=== PATIENT | female | born 1930 | race Caucasian/White ===

== ENCOUNTER 2018-11-29 18:25 | Emergency (ER) | payer OTHER | END 2018-11-29 22:47 | disposition home or self-care (01) | LOC: ER 18:25 ==

== ENCOUNTER 2018-12-09 11:02 | Emergency (ER) | payer MEDICARE | END 2018-12-09 11:30 | disposition home or self-care (01) | LOC: ER 11:02 ==

== ENCOUNTER 2020-02-22 13:34 | Emergency (ER) | payer MEDICARE ==
[~2020-02-22] VITALS: Ht 160 cm; Wt 63.6 kg
[~2020-02-22 13:34] MED LIST: CEPH250C PO
--- NOTE | 2020-02-22 13:50 | NUR ---
LKWT 1315. Initial NIH 3.
[2020-02-22 14:05] LABS: BASOPHILS % (AUTO) 0 % (0-10); EOSINOPHILS # (AUTO) 0.2 10^3/uL (0.0-0.3); EOSINOPHILS % (AUTO) 2 % (0-10); HEMATOCRIT 42 % (35-52); HEMOGLOBIN 13.5 G/DL (11.5-16.0); LYMPHOCYTES # (AUTO) 1.7 X 10^3 (1.0-4.0); LYMPHOCYTES % (AUTO) 17 % (12-44); MEAN CORPUSCULAR HEMOGLOBIN 26 PG (25-34); MEAN CORPUSCULAR HGB CONC 32 G/DL (32-36); MEAN CORPUSCULAR VOLUME 82 FL (80-99); MEAN PLATELET VOLUME 9.8 FL (7.4-10.4); MONOCYTES # (AUTO) 1.1 X 10^3 (0.0-1.0); MONOCYTES % (AUTO) 11 % (0-12); NEUTROPHILS # (AUTO) 6.8 X 10^3 (1.8-7.8); NEUTROPHILS % (AUTO) 70 % (42-75); PLATELET COUNT 273 10^3/uL (130-400); WHITE BLOOD COUNT 9.7 10^3/uL (4.3-11.0)
--- NOTE | 2020-02-22 14:07 | ED Neurological Problem ---
General Chief Complaint: Neurological Problems Stated Complaint: SLURRED SPEECH Source: patient Exam Limitations: no limitations History of Present Illness Date Seen by Provider: Feb 22, 2020 Time Seen by Provider: 13:48 Initial Comments Patient presents ER by private conveyance from home with chief complaint that about half hour prior to arrival she started having some slurred speech and right arm weakness. 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 Last night she got up to get a drink of water which she says is unusual for her. At that time she had some slurred speech but it went away in a few minutes. She did not seek care at that time. She also noted since this morning she's been having some pain in her left hip. 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 Not bad enough for her to take anything or wanting anything for it. She does not take blood thinners, antiplatelets routinely. LKWT 1315. Allergies and Home Medications Allergies Coded Allergies: Sulfa (Sulfonamide Antibiotics) (Unverified Allergy, Unknown, 11/29/18) Home Medications Cephalexin 250 Mg Capsule, 250 MG PO QID Prescribed by: RUDI BARRERA on 11/29/18 2140 Patient Home Medication List Home Medication List Reviewed: Yes Review of Systems Review of Systems Constitutional: No chills, No diaphoresis Eyes: Denies Blindness, Denies Drainage Ears, Nose, Mouth, Throat: denies ear pain, denies ear discharge Respiratory: No cough, No short of breath Cardiovascular: No chest pain, No edema Gastrointestinal: No abdominal pain, No constipation, No diarrhea, No nausea Genitourinary: No discharge, No dysuria; frequency Musculoskeletal: see HPI; No back pain; joint pain All Other Systems Reviewed Negative Unless Noted: Yes Past Kgojpah-Gfdhpv-Iklmin Hx Patient Social History Alcohol Use: Denies Use Recreational Drug Use: No Smoking Status: Never a Smoker 2nd Hand Smoke Exposure: No Recent Foreign Travel: No Contact w/Someone Who Travel: No Recent Hopitalizations: No Seasonal Allergies Seasonal Allergies: No Past Medical History Surgeries: Yes Appendectomy, Hysterectomy Respiratory: No Hypertension Neurological: Yes (former brain bleed) Genitourinary: No Gastrointestinal: No Musculoskeletal: No Endocrine: No HEENT: No Cancer: No Psychosocial: No Integumentary: No Blood Disorders: No Adverse Reaction/Blood Tranf: No Physical Exam Vital Signs Vital Signs - First Documented Capillary Refill : Height, Weight, BMI Height: 5'4.50" Weight: 148lbs. oz. 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, no motor/sensory deficits, alert, normal mood/affect, oriented x 3 Crainal Nerves: normal hearing, normal speech, PERRL Motor/Sensory: no sensory deficit, pronator drift (R) Skin: normal color, warm/dry Stroke Onset of Symptoms Date of Onset of Symptoms: Feb 22, 2020 Time of Symptom Onset: 13:30 Onset of Symptoms: Yes Symptoms onset unknown: No NIH Stroke Scale Assessment Select: Initial Level of Consciousness: 0=Alert (0), Level of Consciousness- Questions: 0=Answers both month/age (0), LOC Commands: 0=Performs both tasks (0), Gaze: Normal (0), Visual Beck: 0=No visual loss (0), Facial Movement (Facial Paresis): 0=Normal symmetrical mnt (0), Motor Function-Arms Right: 2=Some effort/gravity (2), Motor Function-Arms Left: 0=No drift (0), Motor Function-Legs Right: 0=No drift (0), Motor Function-Legs Left: 0=No drift (0), Limb Ataxia: 0=Absent (0), Sensory: 0=Normal:no loss (0), Best Language: 0=No aphasia (0), Dysarthria: 1=Mild to moderate loss (1), Extinction & Inattention: 0=No abnormality (0), Total: 3 Stroke Thrombolytic Exclusion Age 18 or Over: Yes (3) History of CVA: Yes Uncontrolled Coagulation Defec: No Intracranial Hemorrhage: No Severe Hypertension: No GI or Bleed: No Intracranial Neoplasm/Aneurysm: No Oral Anticoagulants: No Surgery or Trauma: No Puncture of Non-Compressible V: No Recent CPR: No Diabetic Hemorrhagic Retinopat: No Organ Biopsy: No Recent Obstetric Delivery: No Glucose: No (95) Significant Hepatic Dysfunctio: No NIH Stoke Scale >22: No Bacterial Endocarditis: No Pericarditis: No Improving Symptoms: Yes Platelets: No TPA Contraindication: Yes (improving symptoms and NIH score is probably too low to benefit from TPA at) IV - TPa Received IV - TPa Procedure Performed?: No Procedures/Interventions Suture Size: 4-0 Progress/Results/Core Measures Results/Orders Lab Results Laboratory Tests Test 02/22/20 13:50 Range/Units White Blood Count 9.7 4.3-11.0 10^3/uL Red Blood Count 5.11 4.35-5.85 10^6/uL Hemoglobin 13.5 11.5-16.0 G/DL Hematocrit 42 35-52 % Mean Corpuscular Volume 82 80-99 FL Mean Corpuscular Hemoglobin 26 25-34 PG Mean Corpuscular Hemoglobin Concent 32 32-36 G/DL Red Cell Distribution Width 14.6 H 10.0-14.5 % Platelet Count 273 130-400 10^3/uL Mean Platelet Volume 9.8 7.4-10.4 FL Neutrophils (%) (Auto) 70 42-75 % Lymphocytes (%) (Auto) 17 12-44 % Monocytes (%) (Auto) 11 0-12 % Eosinophils (%) (Auto) 2 0-10 % Basophils (%) (Auto) 0 0-10 % Neutrophils # (Auto) 6.8 1.8-7.8 X 10^3 Lymphocytes # (Auto) 1.7 1.0-4.0 X 10^3 Monocytes # (Auto) 1.1 H 0.0-1.0 X 10^3 Eosinophils # (Auto) 0.2 0.0-0.3 10^3/uL Basophils # (Auto) 0.0 0.0-0.1 10^3/uL Prothrombin Time 13.6 12.2-14.7 SEC INR Comment 1.0 0.8-1.4 Activated Partial Thromboplast Time 27 24-35 SEC D-Dimer 5.89 H 0.00-0.49 UG/ML Sodium Level 140 135-145 MMOL/L Potassium Level 4.2 3.6-5.0 MMOL/L Chloride Level 106 98-107 MMOL/L Carbon Dioxide Level 25 21-32 MMOL/L Anion Gap 9 5-14 MMOL/L Blood Urea Nitrogen 20 H 7-18 MG/DL Creatinine 0.85 0.60-1.30 MG/DL Estimat Glomerular Filtration Rate > 60 BUN/Creatinine Ratio 24 Glucose Level 98 70-105 MG/DL Glucometer 95 70-110 MG/DL Calcium Level 9.3 8.5-10.1 MG/DL Corrected Calcium 9.3 8.5-10.1 MG/DL Total Bilirubin 0.5 0.1-1.0 MG/DL Aspartate Amino Transf (AST/SGOT) 17 5-34 U/L Alanine Aminotransferase (ALT/SGPT) 14 0-55 U/L Alkaline Phosphatase 136 40-136 U/L Troponin I < 0.028 <0.028 NG/ML Total Protein 7.4 6.4-8.2 GM/DL Albumin 4.0 3.2-4.5 GM/DL My Orders Orders - EDGAR OSEGUERA Cbc With Automated Diff (02/22/20 13:59) Protime With Inr (02/22/20 13:59) Partial Thromboplastin Time (02/22/20 13:59) Comprehensive Metabolic Panel (02/22/20 13:59) Fibrin Degradation Products (02/22/20 13:59) Troponin I (02/22/20 13:59) Ua Culture If Indicated (02/22/20 13:59) Chest 1 View, Ap/Pa Only (02/22/20 13:59) Ekg Tracing (02/22/20 13:59) Nothing By Mouth (02/22/20 Lunch) Accucheck Stat ONCE (02/22/20 13:59) Ed Iv/Invasive Line Start (02/22/20 13:59) Ed Iv/Invasive Line Start (02/22/20 13:59) Vital Signs Stroke Patient Q15M (02/22/20 13:59) Ct Head Wo-R/O Stroke (02/22/20 13:59) O2 (02/22/20 13:59) Intake & Output 06,14,22 (02/22/20 13:59) Monitor-Rhythm Ecg Trace Only (02/22/20 13:59) Dysphagia Screening Tool (02/22/20 13:59) Lipid Panel (02/23/20 06:00) Vital Signs/I&O 02/22/20 02/22/20 13:46 13:46 Temp 36.6 36.6 Pulse 65 65 Resp 20 20 B/P (MAP) 141/63 (89) 141/63 (89) Pulse Ox 95 95 O2 Delivery Room Air Room Air FSBG Bedside Testing Finger Stick Blood Glucose: 96 Blood Glucose Action Taken: PROVIDER NOTIFIED Progress Progress Note #1: Time: 14:44 Progress Note On return from CT patient's speech is more garbled and she's having more slurring of her words. She is now receiving a total of 4 points, 2 for her right arm and 2 for her dysphagia. Progress Note #2: Time: 15:38 Progress Note Spoke to Tenisha, daughter per patient's request. Updated her of the situation. Initial ECG Impression Date: Feb 22, 2020 Initial ECG Impression Time: 13:53 Initial ECG Rate: 58 Initial ECG Rhythm: Normal Sinus Initial ECG Intervals: Normal Initial ECG Impression: Normal, Nonspecific Changes Initial ECG Comparisson: No Previous ECG Available Comment Normal sinus rhythm Diagnostic Imaging Diagonstic Imaging: Xray Plain Films/CT/US/NM/MRI: chest (1v) Comments NAME: TERRANCE TRUJILLO [facility] REC#: [id number] PT STATUS: REG ER : 1930 PHYSICIAN: EDGAR OSEGUERA MD ADMIT DATE: 02/22/20/ER Draft Date of Exam:02/22/20 CHEST 1 VIEW, AP/PA ONLY EXAMINATION: Portable erect AP chest at 02:14 p.m. INDICATION: CVA. FINDINGS: The heart size is borderline enlarged but stable when compared to the prior exam of 11/29/2018. The chronic pulmonary changes, primarily involving the lung apices, seen on the prior study are again evident and no different. There is no sign of failure, pneumonia or pleural effusion. The mediastinum is not widened. The osseous structures are intact. IMPRESSION: There is no evidence for active disease. Dictated on workstation # [id number] Dict: 02/22/20 1421 Trans: 02/22/20 1423 [facility] [id number] Interpreted by: VAHE MACIEL MD Electronically signed by: Reviewed: Reviewed by Me Diagonstic Imaging: CT Plain Films/CT/US/NM/MRI: head Comments NAME: TERRANCE TRUJILLO [facility] REC#: [id number] PT STATUS: REG ER : 1930 PHYSICIAN: EDGAR OSEGUERA MD ADMIT DATE: 02/22/20/ER Draft Date of Exam:02/22/20 CT HEAD WO-R/O STROKE PROCEDURE: CT head wo r/o stroke. TECHNIQUE: Multiple contiguous axial images were obtained through the brain without the use of intravenous contrast. Auto Exposure Controls were utilized during the CT exam to meet ALARA standards for radiation dose reduction. INDICATION: Stroke activation with slurred speech. Correlation is made with prior head CT from 11/29/2018. There is a small amount of acute subarachnoid hemorrhage involving the left frontoparietal convexity. No subdural, epidural or intraparenchymal hemorrhage is seen. The ventricular size and sulcal pattern are stable when compared with prior exam. There is moderate periventricular hypodensity noted consistent with senescent change. No midline shift is identified. Cisterns are patent. Visualized paranasal sinuses are clear. IMPRESSION: 1. Small amount of acute subarachnoid hemorrhage left frontoparietal convexity. No other areas of hemorrhage are detected. 2. Senescent changes. Results were discussed with Dr. Oseguera of the emergency Department prior to this dictation. Dictated on workstation # [id number] Dict: 02/22/20 1418 Trans: 02/22/20 1426 [facility] [id number] Interpreted by: GUILLE VALLES MD Electronically signed by: Reviewed: Reviewed by Me, Discussed w/Radiologist Departure Impression Primary Impression: Subarachnoid hemorrhage Disposition: XF [facility] HOSP Condition: Stable Transfer Transfer Reason: Exceeds level of care (no neurosurgery available here) Time Spoke to Accepting Phy: 15:20 Transfer Progress Notes Spoke to [facility] at 1430: Gave report to triage nurse. She will recheck to neurosurgery and call us back. 1520: Liss, triage nurse at [facility] has spoken to neurosurgery, neuro ICU as well as neurology. Neurology except the patient. They will call us back with a room number. They do not have any intentions offer at this time however they do want to see her inpatient at [facility], work her up and offer any appropriate interventions as indicated. They wish us to warn the patient and family of the risks of distant transport after a subarachnoid hemorrhage for seizure, worsening neurologic outcome etc. Dr Cristina, Neurology accepting. Transfer Facility: [facility] Method of Transfer: EMS ([facility]) Departure-Patient Inst. Referrals: NO,LOCAL PHYSICIAN (PCP/Family) Primary Care Physician EDGAR OSEGUERA Feb 22, 2020 14:07
[2020-02-22 14:12] LABS: CHLORIDE 106 MMOL/L (98-107); POTASSIUM 4.2 MMOL/L (3.6-5.0); SODIUM 140 MMOL/L (135-145)
[2020-02-22 14:13] LABS: CALCIUM 9.3 MG/DL (8.5-10.1)
[2020-02-22 14:14] LABS: GLUCOSE 98 MG/DL (70-105); TOTAL PROTEIN 7.4 GM/DL (6.4-8.2)
[2020-02-22 14:15] LABS: CARBON DIOXIDE 25 MMOL/L (21-32)
[2020-02-22 14:16] LABS: BILIRUBIN,TOTAL 0.5 MG/DL (0.1-1.0)
[2020-02-22 14:18] LABS: ALKALINE PHOSPHATASE 136 U/L (40-136); CREATININE SERUM 0.85 MG/DL (0.60-1.30); GFR ESTIMATED > 60
[2020-02-22 14:19] LABS: BUN/CREATININE RATIO 24
--- NOTE | 2020-02-22 14:20 | NUR ---
Upon returning from CT, becca higgins noted. NIH score 4. Provider notified.
[2020-02-22 14:21] LABS: ALANINE AMINOTRANSFERASE 14 U/L (0-55)
[2020-02-22 14:24] LABS: FIBRIN DEGRADATION PRODUCTS 5.89 UG/ML (0.00-0.49); PROTHROMBIN TIME PATIENT 13.6 SEC (12.2-14.7)
--- NOTE | 2020-02-22 14:24 | Diagnostic Imaging Report ---
EXAMINATION: Portable erect AP chest at 02:14 p.m. INDICATION: CVA. FINDINGS: The heart size is borderline enlarged but stable when compared to the prior exam of 11/29/2018. The chronic pulmonary changes, primarily involving the lung apices, seen on the prior study are again evident and no different. There is no sign of failure, pneumonia or pleural effusion. The mediastinum is not widened. The osseous structures are intact. IMPRESSION: There is no evidence for active disease. Dictated by: Dictated on workstation # [id number]
--- NOTE | 2020-02-22 14:26 | Diagnostic Imaging Report ---
PROCEDURE: CT head wo r/o stroke. TECHNIQUE: Multiple contiguous axial images were obtained through the brain without the use of intravenous contrast. Auto Exposure Controls were utilized during the CT exam to meet ALARA standards for radiation dose reduction. INDICATION: Stroke activation with slurred speech. Correlation is made with prior head CT from 11/29/2018. There is a small amount of acute subarachnoid hemorrhage involving the left frontoparietal convexity. No subdural, epidural or intraparenchymal hemorrhage is seen. The ventricular size and sulcal pattern are stable when compared with prior exam. There is moderate periventricular hypodensity noted consistent with senescent change. No midline shift is identified. Cisterns are patent. Visualized paranasal sinuses are clear. IMPRESSION: 1. Small amount of acute subarachnoid hemorrhage left frontoparietal convexity. No other areas of hemorrhage are detected. 2. Senescent changes. Results were discussed with Dr. Oseguera of the emergency Department prior to this dictation. Dictated by: Dictated on workstation # [id number]
--- NOTE | 2020-02-22 15:10 | NUR ---
Contacted daughters Michelle regarding pt findings et update. ([phone])
--- NOTE | 2020-02-22 15:30 | NUR ---
Pt signed consent for transfer to [facility].
--- NOTE | 2020-02-22 15:35 | NUR ---
PCCT assisted pt to bedside commode to obtain clean catch urine sample. Pt tolerated well.
[2020-02-22 15:46] LABS: BILIRUBIN,URINE NEGATIVE (NEGATIVE); CLARITY,URINE CLEAR; COLOR,URINE YELLOW; GLUCOSE, URINE (UA) NEGATIVE (NEGATIVE); KETONES,URINE NEGATIVE (NEGATIVE); LEUKOCYTE ESTERASE ,URINE 1+ (NEGATIVE); NITRITE,URINE NEGATIVE (NEGATIVE); PROTEIN,URINE NEGATIVE (NEGATIVE)
[2020-02-22 15:53] LABS: BACTERIA,URINE TRACE /HPF; YEAST,URINE FEW /HPF
[2020-02-22 17:40] VITALS: BP 159/60
== END 2020-02-22 17:40 | disposition short-term general hospital (02) ==
LOC: EDUNIT# 13:34 → ER 13:39
DX: I60.8 Other nontraumatic subarachnoid hemorrhage (principal); Z88.2 Allergy status to sulfonamides; Z96.642 Presence of left artificial hip joint
CPT/HCPCS: 36415; 70450; 71045; 80053; 81000; 82962; 84484; 85025; 85379; 85610; 85730; 87088; 93005; 93041

== ENCOUNTER → 2020-05-16 | Outpatient (CLI) | payer MEDICARE ==
--- NOTE | 2020-05-16 16:10 | Diagnostic Imaging Report ---
INDICATION: Left hip pain. Previous hip replacement. COMPARISON: None FINDINGS: Two radiographic views of the left hip were obtained and show expected postsurgical changes of previous partial left hip replacement. Femoral component appears well-aligned in respect to the [place] acetabulum. Femoral component also appears well-seated within the proximal femur. There is no evidence periprosthetic fracture. No unexpected radiopaque foreign bodies are seen. IMPRESSION: 1. Expected postsurgical changes of previous left hip hemiarthroplasty. Dictated by: Dictated on workstation # [id number]
== END ==
LOC: RAD 15:30
PROVIDERS: ATTEND Family Medicine
DX: M25.552 Pain in left hip (principal); Z96.642 Presence of left artificial hip joint
CPT/HCPCS: 73502

== ENCOUNTER 2021-01-28 19:24 | Inpatient (IN) | payer MEDICARE ==
[~2021-01-28] VITALS: Ht 154.9 cm; Wt 59.7 kg
[2021-01-28 20:43] LABS: BASOPHILS # (AUTO) 0.1 10^3/uL (0.0-0.1); BASOPHILS % (AUTO) 0 % (0-10); EOSINOPHILS % (AUTO) 0 % (0-10); HEMATOCRIT 43 % (35-52); HEMOGLOBIN 13.5 g/dL (11.5-16.0); LYMPHOCYTES # (AUTO) 1.5 10^3/uL (1.0-4.0); LYMPHOCYTES % (AUTO) 12 % (12-44); MEAN CORPUSCULAR HEMOGLOBIN 25 pg (25-34); MEAN CORPUSCULAR HGB CONC 31 g/dL (32-36); MEAN CORPUSCULAR VOLUME 80 fL (80-99); MEAN PLATELET VOLUME 9.3 fL (9.0-12.2); MONOCYTES # (AUTO) 1.1 10^3/uL (0.0-1.0); MONOCYTES % (AUTO) 9 % (0-12); NEUTROPHILS # (AUTO) 9.2 10^3/uL (1.8-7.8); NEUTROPHILS % (AUTO) 73 % (42-75); PLATELET COUNT 379 10^3/uL (130-400); WHITE BLOOD COUNT 12.5 10^3/uL (4.3-11.0)
[2021-01-28 20:47] LABS: PROTHROMBIN TIME PATIENT 13.7 SEC (12.2-14.7)
[2021-01-28 20:50] LABS: SMEAR SCAN COMMENT YES
--- NOTE | 2021-01-28 20:55 | Diagnostic Imaging Report ---
HISTORY: Altered mental status. COMPARISON: 02/22/2020. TECHNIQUE: Frontal view of the chest. FINDINGS: Lung volumes are mildly large. No focal consolidation is seen. There is mild scarring in the lung apices. The cardiac silhouette is stable in size. There is no pleural effusion or pneumothorax. There is aortic atherosclerosis. There is diffuse osteopenia. IMPRESSION: No acute pulmonary abnormality. Dictated by: Dictated on workstation # [id number]
[2021-01-28 21:05] LABS: ALANINE AMINOTRANSFERASE 24 U/L (0-55); ALBUMIN 3.6 GM/DL (3.2-4.5); ALKALINE PHOSPHATASE 165 U/L (40-136); AMMONIA 33 UMOL/L (11-32); BILIRUBIN,TOTAL 0.7 MG/DL (0.1-1.0); BUN/CREATININE RATIO 23; CALCIUM 9.6 MG/DL (8.5-10.1); CARBON DIOXIDE 22 MMOL/L (21-32); CHLORIDE 101 MMOL/L (98-107); CREATINE KINASE 14 U/L (29-168); CREATININE SERUM 0.93 MG/DL (0.60-1.30); GFR ESTIMATED 57; GLUCOSE 111 MG/DL (70-105); MAGNESIUM 1.9 MG/DL (1.6-2.4); POTASSIUM 4.3 MMOL/L (3.6-5.0); SODIUM 136 MMOL/L (135-145); TOTAL PROTEIN 7.9 GM/DL (6.4-8.2)
[2021-01-28 21:11] LABS: CLARITY,URINE SL CLOUDY; COLOR,URINE DARK YELLOW; GLUCOSE, URINE (UA) NEGATIVE (NEGATIVE); KETONES,URINE TRACE (NEGATIVE); LEUKOCYTE ESTERASE ,URINE 1+ (NEGATIVE); NITRITE,URINE NEGATIVE (NEGATIVE); PROTEIN,URINE TRACE (NEGATIVE)
[2021-01-28 21:12] LABS: ERYTHROCYTE SEDIMENTATION RATE 18 MM/HR (0-30)
--- NOTE | 2021-01-28 21:22 | ED General ---
General Chief Complaint: Altered Mental Status Stated Complaint: AMS Nursing Triage Note: DAUGHTER STATES PATIENT HAS BEEN INCREASINGLY MORE CONFUSED THE LAST 2 DAYS WITH INCREASED WEAKNESS AND INCONTINENCE OF BOWEL AND BLADDER AND DECREASED APPETITE. TYPICALLY PATIENT IS INDEP. AT HOME WHERE SHE LIVES WITH HER DAUGHTER. Source of Information: Family (DAUGHTER GIVES ALL INFORMATION) Exam Limitations: Other (PT IS CONFUSED, UNABLE TO GIVE ANY INFORMATION) History of Present Illness Date Seen by Provider: Jan 28, 2021 Time Seen by Provider: 20:20 Initial Comments PT ARRIVES VIA POV FROM HOME WITH DAUGHTER PT HAS HAD A SIGNIFICANT CHANGE IN MENTAL AND PHYSICAL STATUS SINCE Friday01/24/21 PT WITH DEMENTIA, BUT NORMALLY IS TALKATIVE, IS VERY ACTIVE AND GETS OUT OF THE HOUSE EVERY DAY, IS ABLE TO WALK ON HER OWN, GOES TO PLAY BINGO AND TO THE [place] ON A REGULAR BASIS, HAS A VERY GOOD APPETITE AND ABLE TO FEED HERSELF, NORMALLY IS CONTINENT OF BOTH BOWELS AND BLADDER, ABLE TO GO TO BATHROOM ON HER OWN, ETC. SINCE FRIDAY, PT HAS BEEN EXTREMELY CONFUSED, PROGRESSIVE WEAKNESS SINCE FRIDAY AND HAS BEEN TOO WEAK TO STAND X 2 DAYS, HAS BEEN INCONTINENT OF BOWELS AND BLADDER X 2 DAYS, HAS NOT EATEN OR DRANK FOR THE LAST 2 DAYS, UNABLE TO SLEEP-HAS BEEN VERY UNCOMFORTABLE, HAS SLID OFF THE BED TWICE SINCE FRIDAY BECAUSE SHE WAS NOT ABLE TO STAND NO KNOWN FEVER NO APPARENT SHORTNESS OF BREATH NO VOMITING OR DIARRHEA PT HAS NOT HAD COVID-[address] ANDREWS ON FRIDAY FOR THIS PROBLEM, AND HE HAS REFERRED HER TO A DEMENTIA CLINIC IN [place]. NO APPOINTMENT HAS BEEN MADE YET PT DOES HAVE A HISTORY OF BRAIN BLEEDS X 2--NO SURGERY PT IS NOT ON ANY ANTICOAGULATION PT HAS NOT RECENTLY HIT HER HEAD PCP: DR. ANDREWS Allergies and Home Medications Allergies Coded Allergies: Sulfa (Sulfonamide Antibiotics) (Unverified Allergy, Unknown, 11/29/18) Home Medications Cephalexin 250 Mg Capsule, 250 MG PO QID Prescribed by: RUDI BARRERA on 11/29/182151 Patient Home Medication List Home Medication List Reviewed: Yes Review of Systems Review of Systems Constitutional: see HPI (PT UNABLE TO ANSWER ANY QUESTIONS), malaise, weakness Gastrointestinal: loss of appetite Genitourinary: incontinence Psychiatric/Neurological: See HPI Past [id number]-Uzrbbq Hx Patient Social History Tobacco Use?: No Use of E-Cig and/or Vaping dev: No Substance use?: No Alcohol Use?: No Pt feels they are or have been: No Seasonal Allergies Seasonal Allergies: No Past Medical History Surgeries: Yes Appendectomy, Hysterectomy Respiratory: No Cardiac: Yes Hypertension Neurological: Yes (BRAIN BLEED X 2--NO SURGERY) Dementia, TIA CLINIC COORDINATOR History: Menopausal Genitourinary: No Gastrointestinal: No Musculoskeletal: Yes (COMPRESSION FRACTURES) Osteoporosis, Fractures Endocrine: No HEENT: No Cancer: No Psychosocial: No Integumentary: No Blood Disorders: No Adverse Reaction/Blood Tranf: No Physical Exam Vital Signs Vital Signs - First Documented 01/28/21 19:59 Temp 36.6 Pulse 64 Resp 20 B/P (MAP) 143/63 (89) Pulse Ox 97 Capillary Refill : Height, Weight, BMI Height: 5'4.50" Weight: 148lbs. oz. 67.235031iv; 26.00 BMI Method:Stated General Appearance: No Apparent Distress, WD/WN HEENT: PERRL/EOMI Neck: Normal Inspection Respiratory: Normal Breath Sounds, No Accessory Muscle Use, No Respiratory Distress Cardiovascular: Regular Rate, Rhythm, No Edema, No JVD, No Murmur, Normal Peripheral Pulses Gastrointestinal: Non Tender, Soft Extremity: No Pedal Edema Neurologic/Psychiatric: Alert, Other (CONFUSED TO PLACE, TIME, SITUATION, UNABLE TO ANSWER QUESTIONS OR COMPLETE SENTENCES, BUT LIMITED SPEECH IS NOT SLURRED. PT KNOWS DAUGHTER BUT HAS SOME DIFFICULTY FINDING NAME. PT HAS DIFFICULTY FOLLOWING SIMPLE COMMANDS, BUT DOES MOVE ALL EXTREMITIES EQUALLY, NO APPARENT FOCAL DEFICITS. ) Skin: Normal Color, Warm/Dry Focused Exam Lactate Level 01/28/21 21:00: Lactic Acid Level 1.16 Lactic Acid Level Laboratory Tests Test 01/28/21 21:00 Lactic Acid Level 1.16 MMOL/L (0.50-2.00) Procedures/Interventions Suture Size: 4-0 Progress/Results/Core Measures Suspected Sepsis SIRS Temperature: Pulse: 64 Respiratory Rate: 20 Laboratory Tests 01/28/21 20:16: White Blood Count 12.5H Blood Pressure 143 /63 Mean: 89 01/28/21 21:00: Lactic Acid Level 1.16 Laboratory Tests 01/28/21 20:16: Creatinine 0.93, INR Comment 1.0, Platelet Count 379, Total Bilirubin 0.7 Results/Orders Lab Results Laboratory Tests Test 01/28/21 20:16 01/28/21 21:00 Range/Units White Blood Count 12.5 H 4.3-11.0 10^3/uL Red Blood Count 5.46 H 3.80-5.11 10^6/uL Hemoglobin 13.5 11.5-16.0 g/dL Hematocrit 43 35-52 % Mean Corpuscular Volume 80 80-99 fL Mean Corpuscular Hemoglobin 25 25-34 pg Mean Corpuscular Hemoglobin Concent 31 L 32-36 g/dL Red Cell Distribution Width 14.8 H 10.0-14.5 % Platelet Count 379 130-400 10^3/uL Mean Platelet Volume 9.3 9.0-12.2 fL Immature Granulocyte % (Auto) 6 % Neutrophils (%) (Auto) 73 42-75 % Lymphocytes (%) (Auto) 12 12-44 % Monocytes (%) (Auto) 9 0-12 % Eosinophils (%) (Auto) 0 0-10 % Basophils (%) (Auto) 0 0-10 % Neutrophils # (Auto) 9.2 H 1.8-7.8 10^3/uL Lymphocytes # (Auto) 1.5 1.0-4.0 10^3/uL Monocytes # (Auto) 1.1 H 0.0-1.0 10^3/uL Eosinophils # (Auto) 0.0 0.0-0.3 10^3/uL Basophils # (Auto) 0.1 0.0-0.1 10^3/uL Immature Granulocyte # (Auto) 0.7 H 0.0-0.1 10^3/uL Erythrocyte Sedimentation Rate 18 0-30 MM/HR Prothrombin Time 13.7 12.2-14.7 SEC INR Comment 1.0 0.8-1.4 Activated Partial Thromboplast Time 30 24-35 SEC Sodium Level 136 135-145 MMOL/L Potassium Level 4.3 3.6-5.0 MMOL/L Chloride Level 101 98-107 MMOL/L Carbon Dioxide Level 22 21-32 MMOL/L Anion Gap 13 5-14 MMOL/L Blood Urea Nitrogen 21 H 7-18 MG/DL Creatinine 0.93 0.60-1.30 MG/DL Estimat Glomerular Filtration Rate 57 BUN/Creatinine Ratio 23 Glucose Level 111 H 70-105 MG/DL Calcium Level 9.6 8.5-10.1 MG/DL Corrected Calcium 9.9 8.5-10.1 MG/DL Magnesium Level 1.9 1.6-2.4 MG/DL Total Bilirubin 0.7 0.1-1.0 MG/DL Aspartate Amino Transf (AST/SGOT) 21 5-34 U/L Alanine Aminotransferase (ALT/SGPT) 24 0-55 U/L Alkaline Phosphatase 165 H 40-136 U/L Ammonia 33 H 11-32 UMOL/L Lactate Dehydrogenase 403 H 125-220 U/L Total Creatine Kinase 14 L 29-168 U/L Creatine Kinase MB 0.6 <6.6 NG/ML Myoglobin 88.0 10.0-92.0 NG/ML Troponin I < 0.028 <0.028 NG/ML C-Reactive Protein High Sensitivity 11.10 H 0.00-0.50 MG/DL B-Type Natriuretic Peptide 96.5 <100.0 PG/ML Total Protein 7.9 6.4-8.2 GM/DL Albumin 3.6 3.2-4.5 GM/DL Procalcitonin 0.48 H <0.10 NG/ML Free Thyroxine 1.08 0.70-1.48 NG/DL TSH [place] Testing 0.24 L 0.35-4.94 UIU/ML Smear Scan YES Urine Color DARK YELLOW Urine Clarity SL CLOUDY Urine pH 5.0 5-9 Urine Specific [place] 1.025 H 1.016-1.022 Urine Protein TRACE H NEGATIVE Urine Glucose (UA) NEGATIVE NEGATIVE Urine Ketones TRACE H NEGATIVE Urine Nitrite NEGATIVE NEGATIVE Urine Bilirubin 1+ H NEGATIVE Urine Urobilinogen 1.0 < = 1.0 MG/DL Urine Leukocyte Esterase 1+ H NEGATIVE Urine RBC (Auto) TRACE-I NEGATIVE Urine RBC 0-2 /HPF Urine WBC 25-50 H /HPF Urine Crystals PRESENT H /LPF Urine Amorphous Sediment MOD YEISON URATES H /LPF Urine Bacteria TRACE /HPF Urine Casts NONE /LPF Urine Mucus SMALL H /LPF Urine Culture Indicated YES Lactic Acid Level 1.16 0.50-2.00 MMOL/L Influenza Type A (RT-PCR) Not Detected Not Detecte Influenza Type B (RT-PCR) Not Detected Not Detecte SARS-CoV-2 RNA (RT-PCR) Not Detected Not Detecte My Orders Orders - MARIALUISA BOYCE DO Ed Iv/Invasive Line Start (01/28/21:) Ekg Tracing (01/28/21:) Catheter(Urinary) Insert & Ass 03,15 (01/28/21:) Monitor-Rhythm Ecg Trace Only (01/28/21:) Ct Head Wo-R/O Stroke (01/28/21:) Ct Thoracic/Lumbar Spine Wo (01/28/21) Ct Cervical Spine Wo (01/28/21) Chest 1 View, Ap/Pa Only (01/28/21) Ammonia (01/28/21) BNP (01/28/21) Cbc With Automated Diff (01/28/21) Comprehensive Metabolic Panel (01/28/21) Creatine Kinase (01/28/21) Creatine Kinase Mb (01/28/21) Hs C Reactive Protein (01/28/21) Lactic Acid Analyzer (01/28/21) Magnesium (01/28/21) Procalcitonin (Pct) (01/28/21) Protime With Inr (01/28/21) Partial Thromboplastin Time (01/28/21:) Thyroid Analyzer (01/28/21) Ua Culture If Indicated (01/28/21:) Erythrocyte Sedimentation Rate (01/28/21:) Myoglobin Serum (01/28/21:) Troponin I (01/28/21:) LDH (01/28/21:) Covid 19 Inhouse Test (01/28/21:) Influenza A And B By Pcr (01/28/21:) Free T4 (Free Thyroxine) (01/28/21 20:16) Urine Culture (01/28/21 21:00) Ceftriaxone (Rocephin) (01/28/21 22:00) Medications Given in ED Current Medications Medications Dose Ordered Sig/Ney Route Start Time Stop Time Status Last Admin Dose Admin Ceftriaxone Sodium 1000 mg/ Sterile Water 10 ml @ 200 mls/hr ONCE ONCE IV 01/28/21 22:00 01/28/21 22:02 DC 01/28/21 22:18 200 MLS/HR Vital Signs/I&O 01/28/21 19:59 Temp 36.6 Pulse 64 Resp 20 B/P (MAP) 143/63 (89) Pulse Ox 97 Capillary Refill : Blood Pressure Mean: 89 Progress Note : Progress Note PLACED IN ISOLATION ROOM PPE WORN COVID-19 TESTING PERFORMED NO DETERIORATION IN PT'S CONDITION DURING ER STAY GIVEN IV FLUIDS AND ROCEPHIN ECG Initial ECG Impression Date: Jan 28, 2021 Initial ECG Impression Time: 20:47 Initial ECG Rate: 60 Initial ECG Rhythm: Normal Sinus Initial ECG Impression: Nonspecific Changes Diagnostic Imaging Comments CXR--PER RADIOLOGIST REPORT AT 2113 FINDINGS: Lung volumes are mildly large. No focal consolidation is seen. There is mild scarring in the lung apices. The cardiac silhouette is stable in size. There is no pleural effusion or pneumothorax. There is aortic atherosclerosis. There is diffuse osteopenia. IMPRESSION: No acute pulmonary abnormality. CT SCANS--ALL PER RADIOLOGIST REPORTS AT 2144 HEAD-- FINDINGS: There is diffuse generalized parenchymal volume loss. Multiple scans were attempted due to motion artifact on multiple images. There is no midline shift or mass effect. There is hypoattenuation of the white matter which is likely from chronic microvascular disease, including small white matter lacunar infarcts in the basal ganglia and in the right mcnair radiata. No acute intracranial hemorrhage is seen. There is no CT evidence of acute territorial ischemia. The calvarium appears intact. 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 IMPRESSION: 1. No acute intracranial hemorrhage or CT evidence of acute territorial ischemia. 2. Generalized parenchymal volume loss with findings of chronic microvascular disease. CERVICAL SPINE-- FINDINGS: There is no spondylolisthesis and alignment appears normal. There is diffuse osteopenia. There is motion artifact throughout the exam resulting in suboptimal evaluation. No acute fracture is seen. There are moderate degenerative changes at C4-C5. There is marked degenerative change at C1-C2. No bony fragment or hyperdense fluid collection is seen in the spinal canal. The thyroid is mildly large and heterogeneous, nonemergent ultrasound could be considered for follow-up. IMPRESSION: Degenerative changes in the cervical spine with no acute fracture seen. CT THORACIC/LUMBAR SPINE-- FINDINGS: CT thoracic spine: There is motion artifact on multiple images. There is exaggerated kyphosis of the thoracic spine with advanced multilevel degenerative changes throughout the spine. There is mild right convex curvature of the thoracic spine. There is diffuse osteopenia. There is compression deformity of the superior endplate of T4 which is age indeterminate and has about 25% height loss. Compression deformities of T7 and T8 appear more likely to be chronic. No other area concerning for fracture is seen. There are old bilateral rib fractures. There are pulmonary nodules in the lungs, bilaterally. The largest visible nodule is in the anterior right upper lobe measuring [address] lumbar spine: The lumbar spine demonstrates grade 2 anterolisthesis at L5-S1 measuring 1.4 cm with bilateral L5 pars defects. There is compression deformity of L3 which is age indeterminate, but thought chronic. There is diffuse osteopenia. There is marked facet arthropathy in the lower lumbar spine. There are moderate degenerative changes in the lumbar spine. There is severe spinal canal stenosis at L3-L4 and L5-S1. Soft tissues about the lumbar spine demonstrate no acute abnormality. IMPRESSION: 1. Age-indeterminate compression deformity of T4. Compression deformities of T7, T8 and L3 are thought more likely chronic. If pain localizes to these locations, MRI could be considered to further evaluate. 2. Advanced degenerative changes in the thoracic and lumbar spine. Severe spinal canal stenosis at L3-L4 and L5-S1. 3. Grade 2 anterolisthesis with bilateral pars defects and advanced degenerative change at L5-S1. Reviewed: Reviewed by Me Departure Communication (Admissions) [id number]--SPOKE WITH DR. COSTELLO, IMAGING MANAGER FOR DR. ANDREWS'S PATIENTS, ACCEPTS PT FOR ADMIT Impression Primary Impression: UTI Additional Impressions: ALTERED MENTAL STATUS IN PT WITH DEMENTIA Generalized weakness Dehydration Disposition: ADMITTED INPATIENT Condition: Stable Admissions Decision to Admit Reason: Admit from ER (General) Decision to Admit/Date: Jan 28, 2021 Time/Decision to Admit Time: 22:00 Departure-Patient Inst. Referrals: NO,LOCAL PHYSICIAN (PCP/Family) Primary Care Physician MARIALUISA BOYCE DO Jan 28, 2021 21:22
[2021-01-28 21:26] LABS: WBC,URINE 25-50 /HPF
[2021-01-28 21:27] LABS: AMORPHOUS SEDIMENT,UR MOD AMOR URATES /LPF; BACTERIA,URINE TRACE /HPF; RBC,URINE 0-2 /HPF
[2021-01-28 21:27] LABS: CREATINE KINASE MB 0.6 NG/ML (<6.6); TSH (THYROID ANALYZER) 0.24 UIU/ML (0.35-4.94)
[2021-01-28 21:28] LABS: BILIRUBIN,URINE 1+ (NEGATIVE)
--- NOTE | 2021-01-28 21:30 | Diagnostic Imaging Report ---
PROCEDURE: CT head w/o r/o stroke. TECHNIQUE: Multiple contiguous axial images were obtained through the brain without the use of intravenous contrast. Auto Exposure Controls were utilized during the CT exam to meet ALARA standards for radiation dose reduction. INDICATION: Altered mental status. Neurological deficit. COMPARISON: 02/22/2020 FINDINGS: There is diffuse generalized parenchymal volume loss. Multiple scans were attempted due to motion artifact on multiple images. There is no midline shift or mass effect. There is hypoattenuation of the white matter which is likely from chronic microvascular disease, including small white matter lacunar infarcts in the basal ganglia and in the right mcnair radiata. No acute intracranial hemorrhage is seen. There is no CT evidence of acute territorial ischemia. The calvarium appears intact. 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 IMPRESSION: 1. No acute intracranial hemorrhage or CT evidence of acute territorial ischemia. 2. Generalized parenchymal volume loss with findings of chronic microvascular disease. Dictated by: Dictated on workstation # [id number]
--- NOTE | 2021-01-28 21:32 | Diagnostic Imaging Report ---
PROCEDURE: CT cervical spine without contrast. TECHNIQUE: Multiple contiguous axial images were obtained through the cervical spine without the use of intravenous contrast. Sagittal and coronal reformations were then performed. Auto Exposure Controls were utilized during the CT exam to meet ALARA standards for radiation dose reduction. INDICATION: Altered mental status. COMPARISON: CT from 11/29/2018. FINDINGS: There is no spondylolisthesis and alignment appears normal. There is diffuse osteopenia. There is motion artifact throughout the exam resulting in suboptimal evaluation. No acute fracture is seen. There are moderate degenerative changes at C4-C5. There is marked degenerative change at C1-C2. No bony fragment or hyperdense fluid collection is seen in the spinal canal. The thyroid is mildly large and heterogeneous, nonemergent ultrasound could be considered for follow-up. IMPRESSION: Degenerative changes in the cervical spine with no acute fracture seen. Dictated by: Dictated on workstation # [id number]
--- NOTE | 2021-01-28 21:44 | Diagnostic Imaging Report ---
PROCEDURE: CT thoracic and lumbar spine without contrast. TECHNIQUE: Multiple contiguous axial images were obtained through the thoracic and lumbar spine without the use of intravenous contrast. Sagittal and coronal reformations were then performed. All CT scans use one or more of the following dose optimizing techniques: automated exposure control, MA and/or KvP adjustment based on patient size and exam type or iterative reconstruction. INDICATION: Altered mental status. COMPARISON: None. FINDINGS: CT thoracic spine: There is motion artifact on multiple images. There is exaggerated kyphosis of the thoracic spine with advanced multilevel degenerative changes throughout the spine. There is mild right convex curvature of the thoracic spine. There is diffuse osteopenia. There is compression deformity of the superior endplate of T4 which is age indeterminate and has about 25% height loss. Compression deformities of T7 and T8 appear more likely to be chronic. No other area concerning for fracture is seen. There are old bilateral rib fractures. There are pulmonary nodules in the lungs, bilaterally. The largest visible nodule is in the anterior right upper lobe measuring [address] lumbar spine: The lumbar spine demonstrates grade 2 anterolisthesis at L5-S1 measuring 1.4 cm with bilateral L5 pars defects. There is compression deformity of L3 which is age indeterminate, but thought chronic. There is diffuse osteopenia. There is marked facet arthropathy in the lower lumbar spine. There are moderate degenerative changes in the lumbar spine. There is severe spinal canal stenosis at L3-L4 and L5-S1. Soft tissues about the lumbar spine demonstrate no acute abnormality. IMPRESSION: 1. Age-indeterminate compression deformity of T4. Compression deformities of T7, T8 and L3 are thought more likely chronic. If pain localizes to these locations, MRI could be considered to further evaluate. 2. Advanced degenerative changes in the thoracic and lumbar spine. Severe spinal canal stenosis at L3-L4 and L5-S1. 3. Grade 2 anterolisthesis with bilateral pars defects and advanced degenerative change at L5-S1. Dictated by: Dictated on workstation # [id number]
[2021-01-28] MEDS ORDERED: cefTRIAXone 1,000 MG in WATER (STERILE) FOR INJECTION 10 ML IV ONE (22:00)
--- OUTSIDE RECORDS SUMMARY | 2021-01-28 22:12 | XMS REPORT | Clinical Summary ---
Author Author [facility] Organization [facility] Address Unknown Phone Unavailable Care Team Providers Care Esthetician Permanent Makeup Artist Name Role Phone Leo Gillis MD PCP Source Comments Some departments are not documenting in the electronic medical record. If you d o not see the information that you expected, contact Release of Information in [facility] [employer] Information Management department at [phone] for further assistan ce in locating additional records.[facility] Allergies No Known Active Allergies Medications End Date Status Medication Sig Dispensed Refills Start Date Active lisinopriL (ZESTRIL) 10 Take one 90 tablet 1 mg tablet tablet by 0 mouth daily. Active metoprolol tartrate Take one-half 180 tablet 02/07 (LOPRESSOR) 25 mg tablet tablet by 0 mouth daily. Active nystatin (MYCOSTATIN) Apply to 15 g 0 02/07 100,000 unit/g topical groin/lowerab 0 cream dominal rash twice daily until healed. Active oxybutynin chloride Take one 90 tablet 0 (DITROPAN) 5 mg tablet tablet by 0 mouth daily. Active phenazopyridine Take one 6 tablet 0 (PYRIDIUM) 200 mg tablet tablet by 0 mouth three times daily. Take after meals for up to 2 days. 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 Recommendations: - melatonin for sleep - Check B12, folate, TSH - start B complex vitamin - defer medical therapy such as memanti ne at this time. patient would like to avoid starting new medications - Daughter feels satisfied with Home he alth assistance at this time SAH (subarachnoid hemorrhage) 02/22/2020 Overview: Formatting of this note might be differ ent from the original. Admitted to Neurology service in Septem mauri for non-traumatic L frontoparietal convexity SAH iwth sympt oms of slurred speech and headache, suspected in the setting of cerebral am yloid. She was unable to tolerate MRI and it was recommended she obtain t his in outpatient setting (has not been done due to severe claustrophobia) . Last Assessment & Plan: Formatting of this note might be differ ent from the original. Recommendations: - defer MRI due claustrophobia. Would n ot likely change mgmt at her age. - SBP <140 - avoid anti-thrombotics d/t risk of bl eed - continue PT at home Encounters Care Team Description Date Type Specialty Ritika Mario LSCSW 01/26/2021 Clinical Neurology Support from Last 3 Months Surgical History Surgery Date Site/Laterality Comments HIP REPLACEMENT Medical History Medical History Date Comments Other abnormal glucose Vision decreased cataract Social History Date Tobacco Use Types Packs/Day Years Used Quit: 02/22/2005 Former Smoker Cigarettes Smokeless Tobacco: Never Used Comments Alcohol Use Standard Drinks/Week Not Currently 0 (1 standard drink = 0.6 o z pure alcohol) Sex Assigned at Date Recorded Female 08/30/2020 8:25 AM CDT Last Filed Vital Signs Reading Time Taken Comments Vital Sign 99/56 08/31/2020 11:58 AM CDT Blood Pressure 55 08/31/2020 11:58 AM CDT Pulse 36.3 C (97.3 F) 02/25/2020 9:31 AM CDT Temperature - - Respiratory Rate 96% 02/25/2020 9:31 AM CDT Oxygen Saturation - - Inhaled Oxygen Concentration 66.2 kg (146 lb) 08/31/2020 11:58 AM CDT Weight 154.9 cm (5' 1") 08/31/2020 11:58 AM CDT Height 27.59 08/31/2020 11:58 AM CDT Body Mass Index Plan of Treatment Health Maintenance Due Date Last Done Comments MEDICARE ANNUAL WELLNESS 1932 VISIT DTAP/TDAP VACCINES (1 - 1950 Tdap) PHYSICAL (COMPREHENSIVE) 1950 EXAM SHINGLES RECOMBINANT 1982 VACCINE (1 of 2) OSTEOPOROSIS 1997 SCREENING/MONITORING PNEUMONIA (PPSV23) 1997 VACCINE (1 of 1 - PPSV23) INFLUENZA VACCINE 03/09/2021 Goals Goal Patient Associated Recent Progress Patient-Stat Aut hor Goal Type Problems ed? Remain independent Hospital Yes Mona Mauricio, RN Note: 'To get better and stay able to take care of myself as long as I can" Results Not on filefrom Last 3 Months Insurance Type Payer Benefit Subscriber ID Effective Phone Address Plan / Dates Group Medicare MEDICARE MEDICARE [id number] [id number] PART A AND resent B -[id number] Advance Directives Patient Water Technician Explanation Type Date Recorded Advance 02/23/2020 3:22 PM Directive/DPOA Date Inactivated Comments Code Status Date Activated 02/25/2020 4:24 PM Full Code 02/22/2020 8:14 PM Provider has discussed Code Status No, more discussi on w/Patient or Family? needed
--- OUTSIDE RECORDS SUMMARY | 2021-01-28 22:12 | XMS REPORT | Encounter Summary ---
Author Author [facility] Organization [facility] Address Unknown Phone Unavailable Care Team Providers Care Pharmaceutical Salesperson Name Role Phone Leo Gillis MD PCP Encounter Details Care Team Description Date Type Department Ritika Mario LSJitendra [address] [place] [address] 01/26/2021 Clinical Neurology: [facility] [address] [facility] [place] [address] Social History Date Tobacco Use Types Packs/Day Years Used Quit: 02/22/2005 Former Smoker Cigarettes Smokeless Tobacco: Never Used Comments Alcohol Use Standard Drinks/Week Not Currently 0 (1 standard drink = 0.6 o z pure alcohol) Sex Assigned at Date Recorded Female 08/30/2020 8:25 AM CDT documented as of this encounter Functional Status Date of Assessment Functional Status Response 02/23/2020 Does the patient have a hearing impairment: No documented as of this encounter Progress Notes * Ritika Mario LSCSW - 01/26/2021 10:27 AM CDT Met with/Phone contact with: Phone contact with patient granddaughter, Zahira Psychosocial update: DIANA received call from Zahira this morning as she had been g keerthien SW number to reach out. Zahira and the family have been noticing that there are some significant changes going on with Vicki in a few short days and these changes are not normal for her. She is not eating, drinking, is now incontinent of bowel and bladder and stating that her legs do not work (but she can move t hem around on her own). Vicki lives in [place], [place] and is living with family . They are not sure what to do at this time, as they took Vicki to her PCP yes terday and they did not do anything for her. She has a history of UTI and was re cently on antibiotics but Zahira does not feel like that this is completely reso lved. Per aZhira, last summer, Vicki had a brain bleed and she significantly decline d after that. She has a significant fear of falling and walking. Zahira wanted t o know what they should do, possibly a UA, blood work or something to rule out a nything physical or emergent. They did get a referral to [facility] on and Dr. Ramirez on May 23, but Zahira does not feel that they ca n wait that long to see what is going on with Vicki. Assessment: DIANA suggested that this case sounds somewhat complicated and that chance ting until April sounds too risky. Recommendations: 1) DIANA recommended that Zahira or her mother call ED and see about getting Law napier admitted for evaluation and treatment and possible MRI or cat scan to see w hat is going on. ED can determine next steps. 2) DIANA asked Zahira to call on Friday and let SW know what they decided and we re able to get worked out. 3) DIANA also advised Zahira to call our clinic and see if there is anything earlie r then May 07 for [facility] and see if this can be moved up at all. Next Steps: Zahira will call on Friday with update. Begin: 9:51 am End: 10:15 am Time: 24 minutes documented in this encounter Plan of Treatment Not on filedocumented as of this encounter Goals Goal Patient Associated Recent Progress Patient-Stat Aut hor Goal Type Problems ed? Remain independent Hospital Yes Mona Mauricio, RN Note: 'To get better and stay able to take care of myself as long as I can" documented as of this encounter Visit Diagnoses Not on filedocumented in this encounter Additional Health Concerns Assessment Noted Time A fall risk assessment has been completed for the pat ient 08/31/2020 12:07 PM CDT PHQ-2 Depression Total Score: 2 08/31/2020 12:06 PM CDT documented as of this encounter
[2021-01-28 22:14] LABS: FREE T4 (FREE THYROXINE) 1.08 NG/DL (0.70-1.48)
--- OUTSIDE RECORDS SUMMARY | 2021-01-28 22:54 | XMS REPORT | Encounter Summary ---
Author Author [facility] Organization [facility] Address Unknown Phone Unavailable Care Team Providers Care Network Internship Name Role Phone Leo Gillis MD PCP Encounter Details Care Team Description Date Type Department Ritika Mario LSJitendra [address] [place] [address] 01/26/2021 Clinical Neurology: [facility] [address] [facility] [place] [address] Social History Date Tobacco Use [...] as of this encounter Progress Notes * Rtiika Mario LSCSW - 01/26/2021 10:27 AM CDT [...] around on her own). Vicki lives in [place], [place] and is living with family . They are not sure what to do at this time, as they took Vicki to her PCP yes terday and they did not do anything for her. She has a history of UTI and was re cently on antibiotics but Zahira does not feel like that this is completely reso lved. Per Zahira, last summer, Vicki had a brain bleed [...]
[2021-01-28] MEDS ORDERED: D5 1/2 NS W/KCL 20 MEQ/L 1,000 ML IV ONE (23:35)
[2021-01-28 23:38] VITALS: BP 127/58
[2021-01-28] MEDS ORDERED: ONDANSETRON 4 MG/2 ML (SDV) Z0FRAN IV PRN (23:45)
[2021-01-29] MEDS: D5 1/2 NS W/KCL 20 MEQ/L 1,000 ML IV SCH ×4 (00:10→19:38)
[2021-01-29 04:00] VITALS: BP 123/56
[2021-01-29 06:00] LABS: BASOPHILS % (AUTO) 0 % (0-10); EOSINOPHILS # (AUTO) 0.1 10^3/uL (0.0-0.3); EOSINOPHILS % (AUTO) 1 % (0-10); HEMATOCRIT 34 % (35-52); HEMOGLOBIN 10.6 g/dL (11.5-16.0); LYMPHOCYTES # (AUTO) 1.6 10^3/uL (1.0-4.0); LYMPHOCYTES % (AUTO) 18 % (12-44); MEAN CORPUSCULAR HEMOGLOBIN 25 pg (25-34); MEAN CORPUSCULAR HGB CONC 31 g/dL (32-36); MEAN CORPUSCULAR VOLUME 81 fL (80-99); MEAN PLATELET VOLUME 9.3 fL (9.0-12.2); MONOCYTES % (AUTO) 11 % (0-12); NEUTROPHILS # (AUTO) 6.1 10^3/uL (1.8-7.8); NEUTROPHILS % (AUTO) 65 % (42-75); PLATELET COUNT 266 10^3/uL (130-400); WHITE BLOOD COUNT 9.4 10^3/uL (4.3-11.0)
[2021-01-29 06:10] LABS: CALCIUM 8.3 MG/DL (8.5-10.1)
[2021-01-29 06:14] LABS: CREATININE SERUM 0.73 MG/DL (0.60-1.30)
--- NOTE | 2021-01-29 07:00 | History & Physicial ---
History of Present Illness History of Present Illness Reason for visit/HPI 89-year-old female presents to emergency department with her daughter after her daughter has noted her to have significant altered mental status. She has been with declining mental status over the past few years. Her daughter states it became quite a bit worse over the past few weeks. According daughter she is usually quite talkative and very active. She usually has a very good appetite and able to feed herself. She has been having progressive weakness and unable to stand very well over the past few days. She is also been incontinent of bowels and stool. She apparently has not eaten or drank for the last 2 days. No reports of any fever. Date of Admission Jan 28, 2021 at 22:00 Date Seen by a Provider: Jan 29, 2021 Time Seen by a Provider: 06:55 I consulted on this patient on 01/29/21 06:55 Attending Physician Leo Andrews MD Admitting Physician No,Local Physician Consult Allergies and Home Medications Allergies Coded Allergies: Sulfa (Sulfonamide Antibiotics) (Unverified Allergy, Unknown, 11/29/18) Home Medications Acetaminophen 325 Mg Tablet, 650 MG PO Q6H PRN for PAIN-MILD (1-4), (Reported) Last Action: Reviewed Lisinopril 10 Mg Tablet, 10 MG PO DAILY, (Reported) LAST FILLED 08/29/2020 #90 90 DAY SUPPLY Last Action: Reviewed Metoprolol Tartrate 25 Mg Tablet, 12.5 MG PO DAILY, (Reported) TAKES (25MG) TABLET Last Action: Reviewed Patient Home Medication List Home Medication List Reviewed: Yes Past Lkgjnro-Hlfomd-Kdyewr Hx Patient Social History Marrital Status: Employed/Student: unemployed Smoking Status: Unknown if Ever Smoked 2nd Hand Smoke Exposure: No Recent Hopitalizations: No Have you traveled recently?: No Alcohol Use?: Unable to obtain Pt feels they are or have been: Unable to obtain Seasonal Allergies Seasonal Allergies: No Surgeries Yes Appendectomy, Hysterectomy Respiratory No Cardiovascular Yes Hypertension Neurological Yes (BRAIN BLEED X 2--NO SURGERY) Dementia, TIA Reproductive System FIRST COAT SANDER History: Menopausal Genitourinary No Gastrointestinal No Musculoskeletal Yes (COMPRESSION FRACTURES) Osteoporosis, Fractures Endocrine History of Endocrine Disorders: No HEENT History of HEENT Disorders: No Cancer No Psychosocial History of Psychiatric Problem: No Integumentary History of Skin or Integumenta: No Blood Transfusions History of Blood Disorders: No Adverse Reaction to a Blood Tr: No Review of Systems Constitutional: see HPI Physical Exam Vital Signs Vital Signs - First Documented 01/28/21 01/28/21 19:59 23:20 Temp 36.6 Pulse 64 Resp 20 B/P (MAP) 143/63 (89) Pulse Ox 97 O2 Delivery Room Air Capillary Refill : Height, Weight, BMI Height: 5'4.50" Weight: 148lbs. oz. 67.092703mg; 24.88 BMI Method:Stated General Appearance: No Apparent Distress, Cachetic Eyes: Bilateral Eye Normal Inspection Neck: Supple Respiratory: Lungs Clear Cardiovascular: Regular Rate, Rhythm Gastrointestinal: Soft Rectal: Deferred Neurologic/Psychiatric: Alert, Disoriented, Other (Confused) Skin: Cool Comments [facility], [place] NAME: TERRANCE TRUJILLO [facility] REC#: [id number] PT STATUS: REG ER : 1930 PHYSICIAN: MARIALUISA BOYCE DO ADMIT DATE: 01/28/21/ER Signed Date of Exam:01/28/21 CT HEAD WO-R/O STROKE PROCEDURE: CT head w/o r/o stroke. TECHNIQUE: Multiple contiguous axial images were obtained through the brain without the use of intravenous contrast. Auto Exposure Controls were utilized during the CT exam to meet ALARA standards for radiation dose reduction. INDICATION: Altered mental status. Neurological deficit. COMPARISON: 02/22/2020 FINDINGS: There is diffuse generalized parenchymal volume loss. Multiple scans were attempted due to motion artifact on multiple images. There is no midline shift or mass effect. There is hypoattenuation of the white matter which is likely from chronic microvascular disease, including small white matter lacunar infarcts in the basal ganglia and in the right mcnair radiata. No acute intracranial hemorrhage is seen. There is no CT evidence of acute territorial ischemia. The calvarium appears intact. 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 IMPRESSION: 1. No acute intracranial hemorrhage or CT evidence of acute territorial ischemia. 2. Generalized parenchymal volume loss with findings of chronic microvascular disease. Dictated by: Dictated on workstation # [id number] Dict: 01/28/212121 Trans: 01/28/212150 [facility] [id number] Interpreted by: STANLEY RICCI MD Electronically signed by: STANLEY RICCI MD 01/28/212150 Assessment/Plan Assessment and Plan 1. Altered mental status -Dementia most likely 2. Dehydration -IV fluid rehydration 3. Urinary tract infection -Rocephin daily has been initiated in ED 4. Generalized malaise and fatigue/weakness -Physical therapy and Occupational Therapy Admission Diagnosis 1. Altered mental status 2. Dehydration 3. Urinary tract infection 4. Generalized malaise and fatigue/weakness Admission Status: Inpatient Order (span 2 midnights) Reason for Inpatient Admission: Monitoring of mental status. Physical therapy occupational therapy. Rocephin for urinary tract infection and await urine culture results LEO ANDREWS MD Jan 29, 2021 07:00
[2021-01-29 07:54] VITALS: BP 131/72
--- NOTE | 2021-01-29 08:43 | Physical Therapy Evaluation ---
PT Evaluation-General Medical Diagnosis Admission Date Jan 28, 2021 at 22:00 Medical Diagnosis: AMS/dehydration/Dementia Onset Date: Jan 28, 2021 Therapy Diagnosis Therapy Diagnosis: debility/weakness Height/Weight Height (Feet): 5 Height (Inches): 4.50 Weight (Pounds): 148 Precautions Precautions/Isolations: Fall Prevention, Standard Precautions Weight Bear Status Right Lower Extremity: Right Weight Bearing/Tolerated Left Lower Extremity: Left Weight Bearing/Tolerated Referral Physician: Francine Reason for Referral: Evaluation/Treatment Medical History Pertinent Medical History: Dementia, HTN Current History ER secondary to increase in confusion/weakness and incontinent bowel and bladder with decreased appetite Reviewed History: Yes Social History Home: Single Level Current Living Status: Children Prior Prior Level of Function SCALE: Activities may be completed with or without assistive devices. 3-Luhzihejwe-mrpvgjv completes the activity by him/herself with no assistance from a helper. 5-Set-up or Clean-up Assistance-helper sets up or cleans up; patient completes activity. [place] assists only prior to or following the activity. 4-Supervision or Touching Assistance-helper provides verbal cues and/or touching/steadying and/or contact guard assistance as patient completes activity. Assistance may be provided throughout the activity or intermittently. 3-Partial/Moderate Assistance-helper does LESS THAN HALF the effort. [place] lifts, holds or supports trunk or limbs, but provides less than half the effort. 2-Substantial/Maximal Assistance-helper does MORE THAN HALF the effort. [place] lifts or holds trunk or limbs and provides more than half the effort. 7-Feybznkig-qyvbsa does ALL the effort. Patient does none of the effort to complete the activity. Or, the assistance of 2 or more helpers is required for the patient to complete the activity. If activity was not attempted, code reason: 7-Patient Refused. 9-Not Applicable-not attempted and the patient did not perform the activity before the current illness, exacerbation or injury. 10-Not Attempted due to Environmental Limitations-(lack of equipment, weather restraints, etc.). 88-Not Attempted due to Medical Conditions or Safety Concerns. Bed Mobility: 6 Transfers (B,C,W/C): 6 Gait: 6 Indoor Mobility (Ambulation): Independent per report from daughter PT Evaluation-Current Subjective Patient is very fearful stating, "Don't me fall. I hurt." Objective Patient Orientation: Confused ROM/Strength ROM Lower Extremities bilateral LE WFL Strength Lower Extremities 3+/5 grossly bilateral (unable to formally test due to severe confusion) Transfers Lying to Sitting/Side of Bed(Q: 3 Sit to Stand (QC): 4 Chair/Nih-ps-Cqqfd Xfer(QC): 4 Gait Does the Patient Walk?: Yes Mode of Locomotion: Walk Anticipated Mode of Locomotion: Walk Walk 10 feet (QC): 4 Walk 50 ft with 2 Turns(QC): 4 Walk 150 ft (QC): 4 Distance: 150' Gait Assistive Device: FWW Comments/Gait Description slow, shuffle gait sequence Wheelchair Training Does the Pt Use a Wheelchair?: No Balance Sitting Static: Normal Sitting Dynamic: Normal Standing Static: Fair Standing Dynamic: Fair Assessment/Needs 89 y.o. female, will benefit from skilled PT to address functional strength and mobility to improve current LOF. Rehab Potential: Fair PT Detention Goals Silverware Assembler Goals PT Detention Goals Time Frame: Feb 10, 2021 Roll Left & Right (QC): 5 Sit to Lying (QC): 5 Lying-Sitting on Side/Bed(QC): 5 Sit to Stand (QC): 5 Chair/Vxq-qs-Bvbyh Xfer(QC): 5 Toilet Transfer (QC): 5 Does the Patient Walk: Yes Walk 10 feet (QC): 5 Walk 50ft with 2 Turns (QC): 5 Walk 150 ft (QC): 5 PT Plan Problem List Problem List: Activity Tolerance, Functional Strength, Balance, Gait, Transfer, Bed Mobility Treatment/Plan Treatment Plan: Continue Plan of Care Treatment Plan: Bed Mobility, Education, Functional Activity Carla, Functional Strength, Gait, Safety, Therapeutic Exercise, Transfers Treatment Duration: Feb 10, 2021 Frequency: 6 times per week Estimated Hrs Per Day: .25 hour per day Time/GCodes Time In: 805 Time Out: 818 Total Billed Treatment Time: 13 Total Billed Treatment 1 visit EVMod 13 min ALYSSA TOM PT Jan 29, 2021 08:42
[2021-01-29] MEDS ORDERED: LISI10TA25 PO (10:53)
[2021-01-29] MEDS ORDERED: ACET325T38 PO (10:53)
[2021-01-29] MEDS ORDERED: METO-333 PO (10:53)
[2021-01-29 11:45] VITALS: BP 146/51
--- NOTE | 2021-01-29 11:50 | Occupational Therapy Eval ---
OT Evaluation-General/PLF Medical Diagnosis Admission Date Jan 28, 2021 at 22:00 Medical Diagnosis: AMS/dehydration/Dementia Onset Date: Jan 28, 2021 Therapy Diagnosis Therapy Diagnosis: decreased ADL status Height/Weight Height (Feet): 5 Height (Inches): 4.50 Weight (Pounds): 148 Precautions Precautions/Isolations: Fall Prevention, Standard Precautions Referral Physician: Francine Referral Reason: Evaluation/Treatment Medical History Pertinent Medical History: Dementia, HTN Additional Medical History TIA, brain bleed x2 (no surgery), compression fractures, osteoporosis Current History ED due to AMS Social History Home: Single Level Current Living Status: Children ADL-Prior Level of Function SCALE: Activities may be completed with or without assistive devices. 6-Xgutpweked-bawkcrd completes the activity by him/herself with no assistance from a helper. 5-Set-up or Clean-up Assistance-helper sets up or cleans up; patient completes activity. [place] assists only prior to or following the activity. 4-Supervision or Touching Assistance-helper provides verbal cues and/or touching/steadying and/or contact guard assistance as patient completes activity. Assistance may be provided throughout the activity or intermittently. 3-Partial/Moderate Assistance-helper does LESS THAN HALF the effort. [place] lifts, holds or supports trunk or limbs, but provides less than half the effort. 2-Substantial/Maximal Assistance-helper does MORE THAN HALF the effort. [place] lifts or holds trunk or limbs and provides more than half the effort. 9-Tlgzjhcyk-lqrsvb does ALL the effort. Patient does none of the effort to complete the activity. Or, the assistance of 2 or more helpers is required for the patient to complete the activity. If activity was not attempted, code reason: 7-Patient Refused. 9-Not Applicable-not attempted and the patient did not perform the activity before the current illness, exacerbation or injury. 10-Not Attempted due to Environmental Limitations-(lack of equipment, weather restraints, etc.). 88-Not Attempted due to Medical Conditions or Safety Concerns. ADL PLOF Comments Pt states she "sometimes" needs assistance with bathing/dressing, and she uses a FWW at [facility] for functional mobility. Accuracy of information obtained unknown at this time as pt is poor historian. Self Care: Needed Some Help Functional Cognition: Needed Some Help DME/Equipment: Bath Chair, Tub/Shower OT Current Status Subjective Pt seated in recliner, many blankets on and pt states she is very cold and shivering. Mental Status/Objective Patient Orientation: Person, Confused Current Glasses/Contacts: Yes Hearing Aids: No Dentures/Partials: Yes Upper Extremity ROM grossly WFL, unable to formally assess as pt refused to bring arms out of blankets due to being cold. Upper Extremity Strength Unable to formally assess as pt refused to take arms out of blankets ADL-Treatment Eating (QC): 3 (assist bringing cup to mouth. Pt able to take a drink.) Oral Hygiene (QC): 3 (Pt brushed teeth, assist bringing basin and cup to mouth. ) Other Treatments Pt seated in recliner, OT introduced self to pt and educated her on purpose and benefit of OT. Pt looked at board and asked this therapist if she was Nicky. OT informed pt that Nicky was her nurse and reintroduced self to pt. Pt hesitantly agreed to brushing her teeth, initially declined due to being too cold. Pt able to use R hand to briefly brush teeth, OT cued pt to make sure she was thorough, OT held basin for pt and brought cup to pt's mouth to rinse, cueing pt for sequencing. Pt washed face after set up assist, then her lunch arrived. OT set up meal for pt, placing straws into liquids. Pt states she is unable to eat. OT encouraged pt to use her arms, pt attempted to use L hand to apple picker broth, placing fingers inside broth, then indicates she is unable to apple picker without burning herself. OT brought cup to pt's mouth, she then was able to drink. OT assisted pt with positioning another pillow behind her back to bring her closer to tray (pt reports fear of falling while leaning forward, telling this therapist not to let her fall), and OT encouraged pt to use arms to pull herself forward to her tray. Post tx, pt seated in recliner, call light in reach and all needs met. Education OT Patient Education: Correct positioning, Energy conservation, Exercise program, Modified ADL techniques, Progress toward Goal/Update tx plan, Purpose of tx/functional activities, Rehab process Teaching Recipient: Patient Teaching Methods: Discussion Response to Teaching: Reinforcement Needed OT Care Home Goals Care Home Goals Time Frame: Feb 07, 2021 Eating (QC): 5 Oral Hygiene (QC): 5 Toileting Hygiene (QC): 4 Shower/Bathe Self (QC): 4 Upper Body Dressing (QC): 5 Lower Body Dressing (QC): 4 On/Off Footwear (QC): 4 Additional Goals: 1-Demonstrate ADL Tasks, 2-Verbalize Understanding, 3-ImproveStrength/Carla 1=Demonstrate adherence to instructed precautions during ADL tasks. 2=Patient will verbalize/demonstrate understanding of assistive devices/modifications for ADL. 3=Patient will improve strength/tolerance for activity to enable patient to perform ADL's. OT Education/Plan Problem List/Assessment Assessment: Decreased Activ Tolerance, Decreased UE Strength, Impaired Funct Balance, Impaired I ADL's, Impaired Self-Care Skills Discharge Recommendations Plan/Recommendations: Continue POC Treatment Plan/Plan of Care Patient would benefit from OT for education, treatment and training to promote independence in ADL's, mobility, safety and/or upper extremity function for ADL's. Plan of Care: ADL Retraining, Functional Mobility, UE Funct Exercise/Act Treatment Duration: Feb 07, 2021 Frequency: 5 times per week Estimated Hrs Per Day: .25 hour per day Rehab Potential: Fair Time/GCodes Start Time: 11:15 Stop Time: 11:30 Total Time Billed (hr/min): 15 Billed Treatment Time 1LINDSAY ADDISON OT Jan 29, 2021 11:50
[2021-01-29 15:00] VITALS: BP 123/69
[2021-01-29 20:00] VITALS: BP 108/65
[2021-01-29] MEDS ORDERED: cefTRIAXone 1,000 MG/SWFI 10 ML IV PUSH IV SCH ×2 (21:00)
[2021-01-29 23:39] VITALS: BP 126/61
[2021-01-30] MEDS: D5 1/2 NS W/KCL 20 MEQ/L 1,000 ML IV SCH ×3 (03:22→20:15)
[2021-01-30 03:45] VITALS: BP 113/72
[2021-01-30 06:05] LABS: BASOPHILS % (AUTO) 0 % (0-10); EOSINOPHILS # (AUTO) 0.1 10^3/uL (0.0-0.3); EOSINOPHILS % (AUTO) 1 % (0-10); HEMATOCRIT 34 % (35-52); HEMOGLOBIN 10.6 g/dL (11.5-16.0); LYMPHOCYTES # (AUTO) 1.2 10^3/uL (1.0-4.0); LYMPHOCYTES % (AUTO) 13 % (12-44); MEAN CORPUSCULAR HEMOGLOBIN 25 pg (25-34); MEAN CORPUSCULAR HGB CONC 31 g/dL (32-36); MEAN CORPUSCULAR VOLUME 81 fL (80-99); MEAN PLATELET VOLUME 9.7 fL (9.0-12.2); MONOCYTES # (AUTO) 1.1 10^3/uL (0.0-1.0); MONOCYTES % (AUTO) 11 % (0-12); NEUTROPHILS # (AUTO) 6.5 10^3/uL (1.8-7.8); NEUTROPHILS % (AUTO) 70 % (42-75); PLATELET COUNT 250 10^3/uL (130-400); WHITE BLOOD COUNT 9.3 10^3/uL (4.3-11.0)
[2021-01-30 06:18] LABS: ALBUMIN 2.5 GM/DL (3.2-4.5); POTASSIUM 4.6 MMOL/L (3.6-5.0)
[2021-01-30 06:19] LABS: CALCIUM 8.3 MG/DL (8.5-10.1)
[2021-01-30 06:20] LABS: TOTAL PROTEIN 5.6 GM/DL (6.4-8.2)
[2021-01-30 06:22] LABS: BILIRUBIN,TOTAL 0.5 MG/DL (0.1-1.0)
[2021-01-30 06:24] LABS: CREATININE SERUM 0.62 MG/DL (0.60-1.30)
--- NOTE | 2021-01-30 07:03 | Progress Note ---
Subjective Date Seen by a Provider: Jan 30, 2021 Time Seen by a Provider: 06:15 Subjective/Events-last exam Patient was lying in bed comfortably awake. She did appear confused but overall responding to questions. She did not voice any complaints. She has been drinking some fluids but with encouragement. Apparently she did eat a little bit of food last night Focused Exam Lactate Level 01/28/21 21:00: Lactic Acid Level 1.16 Objective Exam Vital Signs Date Time Temp Pulse Resp B/P (MAP) Pulse Ox O2 Delivery O2 Flow Rate FiO2 01/30/21 03:45 36.5 83 22 113/72 (86) 96 01/30/21 01:00 63 01/29/21 23:39 36.4 85 30 126/61 (82) 96 01/29/21 20:35 Room Air 01/29/21 20:00 36.4 84 16 108/65 (79) 94 01/29/21 19:00 86 01/29/21 15:00 37.5 73 18 123/69 (87) 99 01/29/21 12:53 80 01/29/21 11:45 36.6 69 18 146/51 (82) 99 Room Air 01/29/21 08:00 Room Air 01/29/21 07:54 35.0 64 18 131/72 (91) 98 Room Air I & O 01/30/21 07:00 Intake Total 1390 ml Output Total 2325 ml Balance -935 ml Capillary Refill : General Appearance: No Apparent Distress Neck: Full Range of Motion Respiratory: Lungs Clear Cardiovascular: Regular Rate, Rhythm Gastrointestinal: non tender, soft Results Lab Laboratory Tests 01/30/21 05:23: White Blood Count 9.3, Red Blood Count 4.25, Hemoglobin 10.6L, Hematocrit 34L, Mean Corpuscular Volume 81, Mean Corpuscular Hemoglobin 25, Mean Corpuscular Hemoglobin Concent 31L, Red Cell Distribution Width 14.9H, Platelet Count 250, Mean Platelet Volume 9.7, Immature Granulocyte % (Auto) 4, Neutrophils (%) (Auto) 70, Lymphocytes (%) (Auto) 13, Monocytes (%) (Auto) 11, Eosinophils (%) (Auto) 1, Basophils (%) (Auto) 0, Neutrophils # (Auto) 6.5, Lymphocytes # (Auto) 1.2, Monocytes # (Auto) 1.1H, Eosinophils # (Auto) 0.1, Basophils # (Auto) 0.0, Immature Granulocyte # (Auto) 0.4H, Sodium Level 133L, Potassium Level 4.6, Chloride Level 106, Carbon Dioxide Level 22, Anion Gap 5, Blood Urea Nitrogen 7, Creatinine 0.62, Estimat Glomerular Filtration Rate 91, BUN/Creatinine Ratio 11, Glucose Level 119H, Calcium Level 8.3L, Corrected Calcium 9.5, Total Bilirubin 0.5, Aspartate Amino Transf (AST/SGOT) 19, Alanine Aminotransferase (ALT/SGPT) 20, Alkaline Phosphatase 116, Total Protein 5.6L, Albumin 2.5L Microbiology 01/28/21 Urine Culture - Final, Complete NO GROWTH Assessment/Plan Assessment/Plan Assess & Plan/Chief Complaint 1. Altered mental status -Dementia most likely 01/30 -tax services intern consult 2. Dehydration -IV fluid rehydration 01/30 -Fluids continue for now until she begins to drink more 3. Urinary tract infection -Rocephin daily has been initiated in ED 01/30 -Urine culture revealed no growth -We will discontinue antibiotics 4. Generalized malaise and fatigue/weakness -Physical therapy and Occupational Therapy Clinical Quality Measures Admission Status Admission Dx 1. Altered mental status 2. Dehydration 3. Urinary tract infection 4. Generalized malaise and fatigue/weakness TALIA ANDREWS MD Jan 30, 2021 07:03
[2021-01-30 08:00] VITALS: BP 145/80
--- NOTE | 2021-01-30 09:46 | Physical Therapy Daily Note ---
PT Daily Note-Current Subjective Patient is up in recliner with chair alarm activated due to severe dementia. Mental Status Patient Orientation: Confused Attachments: [place]n Catheter Transfers SCALE: Activities may be completed with or without assistive devices. 1-Gbafkfwwpt-dfwoyzy completes the activity by him/herself with no assistance from a helper. 5-Set-up or Clean-up Assistance-helper sets up or cleans up; patient completes activity. [place] assists only prior to or following the activity. 4-Supervision or Touching Assistance-helper provides verbal cues and/or touching/steadying and/or contact guard assistance as patient completes activity. Assistance may be provided throughout the activity or intermittently. 3-Partial/Moderate Assistance-helper does LESS THAN HALF the effort. [place] lifts, holds or supports trunk or limbs, but provides less than half the effort. 2-Substantial/Maximal Assistance-helper does MORE THAN HALF the effort. [place] lifts or holds trunk or limbs and provides more than half the effort. 5-Jqxwsjufx-ifpwcp does ALL the effort. Patient does none of the effort to complete the activity. Or, the assistance of 2 or more helpers is required for the patient to complete the activity. If activity was not attempted, code reason: 7-Patient Refused. 9-Not Applicable-not attempted and the patient did not perform the activity before the current illness, exacerbation or injury. 10-Not Attempted due to Environmental Limitations-(lack of equipment, weather restraints, etc.). 88-Not Attempted due to Medical Conditions or Safety Concerns. Sit to Stand (QC): 3 Weight Bearing Right Lower Extremity: Right Weight Bearing/Tolerated Left Lower Extremity: Left Weight Bearing/Tolerated Gait Training Does the Patient Walk?: Yes Distance: 150' Walk 10 feet (QC): 3 Walk 50 ft with 2 Turns(QC): 3 Walk 150 ft (QC): 3 Gait Assistive Device: FWW shuffle gait sequence with trunk flexed posture Assessment Patient requires VC's by PT to advance FWW and direction. Patient voices fear of falling. PT reassures patient the gait belt is on and PT has ahold and she will not fall. Patient remains up in recliner with chair alarm activated. PT Dedicated Truck Driver Goals Halfway Goals PT Halfway Goals Time Frame: Feb 10, 2021 Roll Left & Right (QC): 5 Sit to Lying (QC): 5 Lying-Sitting on Side/Bed(QC): 5 Sit to Stand (QC): 5 Chair/Vvt-vl-Peugp Xfer(QC): 5 Toilet Transfer (QC): 5 Does the Patient Walk: Yes Walk 10 feet (QC): 5 Walk 50ft with 2 Turns (QC): 5 Walk 150 ft (QC): 5 PT Plan Treatment/Plan Treatment Plan: Continue Plan of Care Treatment Plan: Bed Mobility, Education, Functional Activity Carla, Functional Strength, Gait, Safety, Therapeutic Exercise, Transfers Treatment Duration: Feb 10, 2021 Frequency: 6 times per week Estimated Hrs Per Day: .25 hour per day Time/GCodes Time In: 848 Time Out: 900 Total Billed Treatment Time: 12 Total Billed Treatment 1 visit GT 12 min ALYSSA TOM PT Jan 30, 2021 09:46
[2021-01-30] MEDS: ACETAMINOPHEN 500 MG TAB (TYLENOL) PO PRN (11:17)
[2021-01-30 11:38] VITALS: BP 138/74
--- NOTE | 2021-01-30 14:54 | Occupational Ther Daily Note ---
OT Current Status-Daily Note Subjective Pt alert, sitting in recliner. Daughter present in room. Pt is pleasantly confused. Mental Status/Objective Patient Orientation: Person, Confused Attachments: IV ADL-Treatment Pt's daughter stated that she had just taken pt to bathroom to use toilet. Therapy Code Descriptions/Definitions Functional [place] Measure: 0=Not Assessed/NA 4=Minimal Assistance 1=Total Assistance 5=Supervision or Setup 2=Maximal Assistance 6=Modified [place] 3=Moderate Assistance 7=Complete IndependenceSCALE: Activities may be completed with or without assistive devices. 0-Zsujfaupqn-pikxnrg completes the activity by him/herself with no assistance fr om a helper. 5-Set-up or Clean-up Assistance-helper sets up or cleans up; patient completes activity. [place] assists only prior to or following the activity. 4-Supervision or Touching Assistance-helper provides verbal cues and/or touching/steadying and/or contact guard assistance as patient completes activity. Assistance may be provided throughout the activity or intermittently. 3-Partial/Moderate Assistance-helper does LESS THAN HALF the effort. [place] lifts, holds or supports trunk or limbs, but provides less than half the effort. 2-Substantial/Maximal Assistance-helper does MORE THAN HALF the effort. [place] lifts or holds trunk or limbs and provides more than half the effort. 4-Nasgzoqqq-clizlj does ALL the effort. Patient does none of the effort to complete the activity. Or, the assistance of 2 or more helpers is required for the patient to complete the activity. If activity was not attempted, code reason: 7-Patient Refused. 9-Not Applicable-not attempted and the patient did not perform the activity before the current illness, exacerbation or injury. 10-Not Attempted due to Environmental Limitations-(lack of equipment, weather restraints, etc.). 88-Not Attempted due to Medical Conditions or Safety Concerns. Other Treatment Pt given medium resistance therapy sponge and theraband for exercise program in room. Pt requires skilled instruction and modifications for correct technique with exercises. Verbal and physical cues given for correct technique when using therapy sponge and theraband. Pt tolerated 15 reps of gripping with therapy sponge. Pt tolerated 10 reps of horizontal shldr abd/add, bicep curls and tricep extension. After session, pt sitting in recliner with daughter present in room. Call light/phone in reach. All needs met in room. OT Neuropsychologist Goals Neuropsychologist Goals Time Frame: Feb 07, 2021 Eating (QC): 5 Oral Hygiene (QC): 5 Toileting Hygiene (QC): 4 Shower/Bathe Self (QC): 4 Upper Body Dressing (QC): 5 Lower Body Dressing (QC): 4 On/Off Footwear (QC): 4 Additional Goals: 1-Demonstrate ADL Tasks, 2-Verbalize Understanding, 3- ImproveStrength/Carla 1=Demonstrate adherence to instructed precautions during ADL tasks. 2=Patient will verbalize/demonstrate understanding of assistive devices/modifications for ADL. 3=Patient will improve strength/tolerance for activity to enable patient to perform ADL's. OT Education/Plan Problem List/Assessment Assessment: Decreased Activ Tolerance, Decreased Safety Aware, Decreased UE Strength Discharge Recommendations Plan/Recommendations: Continue POC Treatment Plan/Plan of Care Patient would benefit from OT for education, treatment and training to promote independence in ADL's, mobility, safety and/or upper extremity function for ADL's. Plan of Care: ADL Retraining, Functional Mobility, UE Funct Exercise/Act Treatment Duration: Feb 07, 2021 Frequency: 5 times per week Estimated Hrs Per Day: .25 hour per day Rehab Potential: Fair Time/GCodes Start Time: 14:06 Stop Time: 14:15 Total Time Billed (hr/min): 9 Billed Treatment Time 1 visit-EX 1 (9 min) DEXTER TRAVIS Jan 30, 2021 14:54
[2021-01-30 15:38] VITALS: BP 118/74
[2021-01-30 20:02] VITALS: BP 131/88
[2021-01-31 00:17] VITALS: BP 131/71
[2021-01-31] MEDS: D5 1/2 NS W/KCL 20 MEQ/L 1,000 ML IV SCH (05:32)
--- NOTE | 2021-01-31 06:44 | Discharge Inst-Simple/Standard ---
Discharge Inst-Standard Reconcile Patient Problems Problems Reviewed?: Yes Discharge Medications New, Converted or Re-Newed RX: Other (no new meds) Patient Instructions/Follow Up Plan of Care/Instructions/FU: Dr Andrews in 1 week Activity as Tolerated: Yes Discharge Diet: Regular Diet Return to The Hospital For: Poor feeding, poor urine output, or lethargy TALIA ANDREWS MD Jan 31, 2021 06:44
--- NOTE | 2021-01-31 06:50 | Discharge Summary ---
Diagnosis/Chief Complaint Date of Admission Jan 28, 2021 at 22:00 Date of Discharge January 31, 2021 Discharge Date: Jan 31, 2021 Admission Diagnosis Admission Diagnosis 1. Urinary tract infection 2. Altered mental status 3. Generalized weakness 4. Dementia Discharge Diagnosis 1. Altered mental status 2. Dehydration 3. Generalized weakness 4. Dementia Reason Hospital Visit 89-year-old female presents to emergency department with her daughter after her daughter has noted her to have significant altered mental status. She has been with declining mental status over the past few years. Her daughter states it became quite a bit worse over the past few weeks. According daughter she is usually quite talkative and very active. She usually has a very good appetite and able to feed herself. She has been having progressive weakness and unable to stand very well over the past few days. She is also been incontinent of bowels and stool. She apparently has not eaten or drank for the last 2 days. No reports of any fever. Discharge Summary Hospital Course Was the Problem List Reviewed?: Yes Hospital Course Patient was admitted on January 28 during the evening after family brought her to ED following altered mental status. She had no fever at the time. She was found in ED to have urinary tract infection as well as dehydration. She was admitted to [facility] and was given IV fluids at 150 cc/h. She was also started on Rocephin 1 g every 24 hours. Urine was sent for culture. During the first 24 hours patient was fairly lethargic and just wanting to sleep. On January 30 in the morning she was noted to be alert and pretty much back to her baseline cognition. It was also noted at this time that the urine culture had no growth. The Rocephin antibiotics were discontinued. hvac services professional was consulted. After discussion with family they are willing to take her home with [facility] as well. She does have an appointment with memory clinic at [facility] later in February. Prior to her dismissal she was drinking fluids and she will eat with encouragement. Labs Procedures None. Discharge Physical Examination Allergies: Coded Allergies: Sulfa (Sulfonamide Antibiotics) (Unverified Allergy, Unknown, 11/29/18) Vitals & I&Os Vital Signs Date Time Temp Pulse Resp B/P (MAP) Pulse Ox O2 Delivery O2 Flow Rate FiO2 01/31/21 14:24 36.3 79 22 134/57 98 Room Air General Appearance: Cooperative, No Acute Distress Respiratory: Clear to Auscultation Cardiovascular: Regular Rate Abdominal: Soft Psych/Mental Status: Other (Pleasant but unable to remember myself but she does know daughter) Discharge Home Medications Reviewed and agree with Discharge Medication list on patient's Discharge Instruction sheet Instructions to Patient/Family Please see electronic discharge instructions given to patient. TALIA ANDREWS MD Jan 31, 2021 06:50
[2021-01-31 08:46] VITALS: BP 134/57
[2021-01-31] MEDS: ACETAMINOPHEN 500 MG TAB (TYLENOL) PO PRN (11:00)
--- NOTE | 2021-01-31 13:19 | Physical Therapy Daily Note ---
PT Daily Note-Current Subjective Pt reluctant to therapy. Daughter present and encouraging participation with PT. Pt states "Don't let me fall" numerous times during ambulation. Mental Status Patient Orientation: Person, Confused Transfers SCALE: Activities may be completed with or without assistive devices. 1-Qacthtbymg-hihbkjv completes the activity by him/herself with no assistance from a helper. 5-Set-up or Clean-up Assistance-helper sets up or cleans up; patient completes activity. [place] assists only prior to or following the activity. 4-Supervision or Touching Assistance-helper provides verbal cues and/or touching/steadying and/or contact guard assistance as patient completes activity. Assistance may be provided throughout the activity or intermittently. 3-Partial/Moderate Assistance-helper does LESS THAN HALF the effort. [place] lifts, holds or supports trunk or limbs, but provides less than half the effort. 2-Substantial/Maximal Assistance-helper does MORE THAN HALF the effort. [place] lifts or holds trunk or limbs and provides more than half the effort. 4-Znptibzrr-nitddf does ALL the effort. Patient does none of the effort to complete the activity. Or, the assistance of 2 or more helpers is required for the patient to complete the activity. If activity was not attempted, code reason: 7-Patient Refused. 9-Not Applicable-not attempted and the patient did not perform the activity before the current illness, exacerbation or injury. 10-Not Attempted due to Environmental Limitations-(lack of equipment, weather restraints, etc.). 88-Not Attempted due to Medical Conditions or Safety Concerns. Weight Bearing Right Lower Extremity: Right Weight Bearing/Tolerated Left Lower Extremity: Left Weight Bearing/Tolerated Gait Training Gait Assistive Device: FWW Pt amb with FWW and CGA x 70ft, short shuffling gait. Exercises Seated Therapy Exercises: Ankle pumps, Long arc quads, Hip flexion, Hip abd/add Seated Reps: 15 (2x) Treatments Pt required max vc's for sequence. Pt fearful during standing and gait training but no unsteadiness. Assessment Current Status: Good Progress, Fair Progress Pt emeka well but apprehensive and fearful. Pt requires SBA-CGA for all mobility due to confusion and fear. Pt resting in chair with call light and all needs met. Ambu alarm activated. PT Fpc Goals Steel Manager Goals PT Fpc Goals Time Frame: Feb 10, 2021 Roll Left & Right (QC): 5 Sit to Lying (QC): 5 Lying-Sitting on Side/Bed(QC): 5 Sit to Stand (QC): 5 Chair/Scm-cp-Subrd Xfer(QC): 5 Toilet Transfer (QC): 5 Car Transfer (QC): 88 Does the Patient Walk: Yes Walk 10 feet (QC): 5 Walk 50ft with 2 Turns (QC): 5 Walk 150 ft (QC): 5 Walking 10ft on Uneven Surface: 88 1 Step (curb) (QC): 88 4 Steps (QC): 88 12 Steps (QC): 88 Picking up an Object (QC): 88 Does the Pt use WC or Scooter?: No Wheel 50 feet with 2 turns (QC: 88 Type: N/A Wheel 150 feet: 88 Type: N/A PT Plan Treatment/Plan Treatment Plan: Continue Plan of Care Treatment Plan: Bed Mobility, Education, Functional Activity Carla, Functional Strength, Gait, Safety, Therapeutic Exercise, Transfers Treatment Duration: Feb 10, 2021 Frequency: 6 times per week Estimated Hrs Per Day: .25 hour per day Time/GCodes Time In: 835 Time Out: 900 Total Billed Treatment Time: 25 Total Billed Treatment 1, ther ex 10', gait 15' BUCK MCGREGOR CPTA Jan 31, 2021 13:19
[2021-01-31 14:24] VITALS: BP 134/57
--- NOTE | 2021-02-01 15:01 | Physician Query Clarification ---
PQ-Uncertain Diagnosis Admission/Discharge Admission Date: Jan 28, 2021 at 22:00 Discharge Date: Jan 31, 2021 at 14:19 The medical record reflects the following clinical scenario: History/Risk Factors: incontinent bowels and urine Clinical Findings: Urine culture negative Treatment: Rocephin given and then stopped Question: Is UTI a clinically valid diagnosis? Please document a response in Progress Note or Discharge Summary. 1. Yes, clinically valid, condition resolved. 2. No, condition ruled out. 3. Other, with explanation of clinical findings. 4. Undetermined, no explanation for clinical findings. PHYSICIAN RESPONSE Diagnosis clinically valid: No, conditon ruled out Please remember a lack of response to the above will prompt a phone page by CDI/Coding staff. In responding to this query, please exercise your independent professional judgment. The purpose of this communication is to more accurately reflect the complexity of your patients condition. The fact that a question is asked does not imply that any particular answer is desired or expected. Thank you for your timely response to this clarification. Requestors name: Ghazal THIS PHYSICIAN QUERY FORM IS A PERMANENT PART OF THE MEDICAL RECORD GHAZAL HARRIS Feb 01, 2021 15:01 TALIA ANDREWS MD Feb 02, 2021 06:57
--- NOTE | 2021-02-01 15:04 | Physician Query Clarification ---
JOSE HARRIS 02/01/21 1504: PQD17 Principal Diagnosis Principal Diagnosis Document Diagnosis QUESTION: Please specify the condition(s) that was chiefly responsible for o ccasioning the admission to the hospital after study/evaluation based on your medical judgment. Clinical Indicators/Findings On Admit/Eval/Treatment: Altered mental status, weakness, fatigue. Treated with Rocephin for UTI, Rocephin stopped after negative culture. Source Document: History and Physicial Erp Business Analyst Note Erp Business Analyst Note Please remember a lack of response to the above will prompt a phone page by CDI/coding staff. In responding to this query, please exercise your independent professional judgment. The purpose of this communication is to more accurately reflect the complexity of your patients condition. The fact that a question is asked does not imply that any particular answer is desired or expected. Thank you for your timely response to this clarification. Requestors name: [] Phone # [] THIS PHYSICIAN QUERY FORM IS A PERMANENT PART OF THE MEDICAL RECORD TALIA ANDREWS MD 02/03/21 2237: PQD17 Principal Diagnosis Question Chief Reason for Admission Aft: Altered mental status was main reason for admission. Family had noted a major change in her ability to function and communicarte. ED felt UTI but culture was no growth aftrer [address] of head was negative. She was discharged with further workup outpatient. JOSE HARRIS Feb 01, 2021 15:04 TALIA ANDREWS MD Feb 03, 2021 22:37
--- NOTE | 2021-02-05 16:27 | Physician Query Clarification ---
JOSE HARRIS 02/05/21 1627: PQD17 Principal Diagnosis Principal Diagnosis Document Diagnosis QUESTION: Please specify the condition(s) that was chiefly responsible for o ccasioning the admission to the hospital after study/evaluation based on your medical judgment. Clinical Indicators/Findings On Admit/Eval/Treatment: Altered mental status, dehydration Source Document: ED, H&P, progress notes Question Chief Reason for Admission Aft: Patient improved after IV fluids, do you feel principal diagnosis for admission after studies and treatment was dehydration? Consulting Solution Manager Note Consulting Solution Manager Note Please remember a lack of response to the above will prompt a phone page by CDI/coding staff. In responding to this query, please exercise your independent professional judgment. The purpose of this communication is to more accurately reflect the complexity of your patients condition. The fact that a question is asked does not imply that any particular answer is desired or expected. Thank you for your timely response to this clarification. Requestors name: [] Phone # [] THIS PHYSICIAN QUERY FORM IS A PERMANENT PART OF THE MEDICAL RECORD TALIA ANDREWS MD 02/06/21 0649: PQD17 Principal Diagnosis Question Chief Reason for Admission Aft: Yes since the urine culture was no growth and patient was dehydrated. After rehydration she improved with alertness. It is difficult to state if she returned to mental baseline since she has dementia. JOSE HARRIS Feb 05, 2021 16:27 TALIA ANDREWS MD Feb 06, 2021 06:49
== END 2021-01-31 14:19 | disposition home health service (06) | DRG 641 ==
LOC: EDUNIT# 19:24 → ER 19:26 → 4TH 22:00
PROVIDERS: ADMIT Internal Medicine; ATTEND Family Medicine
DX: E86.0 Dehydration (principal); R41.82 Altered mental status, unspecified; I10 Essential (primary) hypertension; R53.1 Weakness; F03.90 Unspecified dementia, unspecified severity, without behavioral disturbance, psychotic disturbance, mood disturbance, and anxiety; R53.83 Other fatigue; M81.0 Age-related osteoporosis without current pathological fracture; R32 Unspecified urinary incontinence; Z88.2 Allergy status to sulfonamides; Z79.899 Other long term (current) drug therapy; Z86.73 Personal history of transient ischemic attack (TIA), and cerebral infarction without residual deficits; Z20.822 Contact with and (suspected) exposure to COVID-19
CPT/HCPCS: 36415; 70450; 71045; 72125; 72128; 72131; 80048; 80053; 81000; 82140; 82550; 82553; 83605; 83615; 83735; 83874; 83880; 84145; 84439; 84443; 84484; 85025; 85610; 85652; 85730; 86141; 87088; 87636; 93005; 93041; 96374

== ENCOUNTER 2021-07-03 17:58 | Emergency (ER) | payer MEDICARE, MEDICAID ==
[~2021-07-03 17:58] MED LIST changes: +ACET325T38 PO; +LISI10TA25 PO; +METO-333 PO
[2021-07-03] MEDS ORDERED: NS IV 1000 ML 1,000 ML IV SCH (18:15)
[2021-07-03 18:35] LABS: BASOPHILS # (AUTO) 0.1 10^3/uL (0.0-0.1); BASOPHILS % (AUTO) 0 % (0-10); EOSINOPHILS # (AUTO) 0.2 10^3/uL (0.0-0.3); EOSINOPHILS % (AUTO) 1 % (0-10); HEMATOCRIT 37 % (35-52); HEMOGLOBIN 11.4 g/dL (11.5-16.0); LYMPHOCYTES # (AUTO) 1.6 10^3/uL (1.0-4.0); LYMPHOCYTES % (AUTO) 14 % (12-44); MEAN CORPUSCULAR HEMOGLOBIN 24 pg (25-34); MEAN CORPUSCULAR HGB CONC 31 g/dL (32-36); MEAN CORPUSCULAR VOLUME 79 fL (80-99); MONOCYTES # (AUTO) 1.1 10^3/uL (0.0-1.0); MONOCYTES % (AUTO) 9 % (0-12); NEUTROPHILS # (AUTO) 8.9 10^3/uL (1.8-7.8); NEUTROPHILS % (AUTO) 74 % (42-75); PLATELET COUNT 417 10^3/uL (130-400)
--- NOTE | 2021-07-03 18:36 | ED General ---
General Chief Complaint: General Problems/Pain Stated Complaint: POST COVID NOT EATING/DRINKING Nursing Triage Note: TO ED PER EMS FROM [facility] IS NOT EATING AND DRINKING IS HAVING WT LOSS. WAS COVID POS JUN 11 Source of Information: Patient, EMS, Skilled Nursing Records, Old Records Exam Limitations: No Limitations History of Present Illness Date Seen by Provider: Jul 03, 2021 Time Seen by Provider: 18:07 Initial Comments Patient ER by EMS from [facility] with chief complaint that she has all over body aches. She was diagnosed with COVID-19 on the third and since then has had failure to thrive. She used to walk with a walker but now her dementia has worsened and she is wheelchair-bound. She is full assist for transfers and has to be fed. Primary care by Dr. Gillis. No nausea vomiting diarrhea constipation. Patient does not contributory towards history except to say that she is hurting all over. No indication she received any NSAIDs or Tylenol recently. Allergies and Home Medications Allergies Coded Allergies: Sulfa (Sulfonamide Antibiotics) (Unverified Allergy, Unknown, 11/29/18) Patient Home Medication List Home Medication List Reviewed: Yes Acetaminophen (Tylenol) 325 Mg Tablet, 650 MG PO Q6H PRN for PAIN-MILD (1-4), (Reported) Entered as Reported by: KEN BARNES on 01/29/21 1053 Lisinopril (Lisinopril) 10 Mg Tablet, 10 MG PO DAILY, (Reported) Entered as Reported by: KEN BARNES on 01/29/21 1053 Metoprolol Tartrate (Metoprolol Tartrate) 25 Mg Tablet, 12.5 MG PO DAILY, (Reported) Entered as Reported by: KEN BARNES on 01/29/21 1053 Review of Systems Review of Systems Constitutional: No chills, No diaphoresis; malaise, weakness EENTM: No ear discharge, No hearing loss Respiratory: No cough, No phlegm Cardiovascular: No edema, No palpitations Gastrointestinal: No abdominal pain, No constipation, No diarrhea, No nausea Genitourinary: No dysuria, No frequency, No hematuria All Other Systems Reviewed Negative Unless Noted: Yes Past Aiugpgs-Njsrtl-Nshkry Hx Patient Social History Tobacco Use?: No Substance use?: No Pt feels they are or have been: No Immunizations Up To Date First/Initial COVID19 Vaccinat: UNKNOWN Second COVID19 Vaccination Pablo: UNKNOWN Seasonal Allergies Seasonal Allergies: No Past Medical History Surgeries: Yes Appendectomy, Hysterectomy Respiratory: No Cardiac: Yes Hypertension Neurological: Yes (BRAIN BLEED X 2--NO SURGERY) Dementia, [employer] History: Menopausal Genitourinary: No Gastrointestinal: No Musculoskeletal: Yes (COMPRESSION FRACTURES) Osteoporosis, Fractures Endocrine: No HEENT: No Cancer: No Psychosocial: No Integumentary: No Blood Disorders: No Adverse Reaction/Blood Tranf: No Physical Exam Vital Signs Vital Signs - First Documented 07/03/21 17:58 Temp 35.6 Pulse 75 Resp 18 B/P (MAP) 135/71 (92) Pulse Ox 98 Capillary Refill : Less Than 3 Seconds Height, Weight, BMI Height: 5'4.50" Weight: 148lbs. oz. [id number]; 24.88 BMI Method:Stated General Appearance: Chronically ill, Mild Distress Eyes: Bilateral Eye Normal Inspection, Bilateral Eye PERRL, Bilateral Eye EOMI HEENT: PERRL/EOMI, TMs Normal, Normal ENT Inspection, Pharynx Normal (Mildly dry oral mucosa); No Moist Mucous Membranes Neck: Full Range of Motion, Normal Inspection Respiratory: Lungs Clear, Normal Breath Sounds, No Accessory Muscle Use, No Respiratory Distress (Oxygen saturation 96 to 98% on room air, nonlabored breathing) Cardiovascular: Regular Rate, Rhythm (78 bpm), No Edema, Normal Peripheral Pulses Gastrointestinal: Normal Bowel Sounds, Non Tender, Soft Extremity: Normal Capillary Refill, Normal Inspection, Normal Range of Motion, Non Tender, No Pedal Edema Neurologic/Psychiatric: Alert, staff trainer II-XII Norm as Tested, Other (Oriented to person place but not time or situation.) Skin: Normal Color, Warm/Dry Procedures/Interventions Suture Size: 4-0 Progress/Results/Core Measures Suspected Sepsis SIRS Temperature: Pulse: 75 Respiratory Rate: 18 Laboratory Tests 07/03/21 18:27: White Blood Count 12.0H Blood Pressure 135 /71 Mean: 92 Laboratory Tests 07/03/21 18:27: Creatinine 0.67, Platelet Count 417H, Total Bilirubin 0.5 Results/Orders Lab Results Laboratory Tests Test 07/03/21 18:27 Range/Units White Blood Count 12.0 H 4.3-11.0 10^3/uL Red Blood Count 4.75 3.80-5.11 10^6/uL Hemoglobin 11.4 L 11.5-16.0 g/dL Hematocrit 37 35-52 % Mean Corpuscular Volume 79 L 80-99 fL Mean Corpuscular Hemoglobin 24 L 25-34 pg Mean Corpuscular Hemoglobin Concent 31 L 32-36 g/dL Red Cell Distribution Width 17.4 H 10.0-14.5 % Platelet Count 417 H 130-400 10^3/uL Mean Platelet Volume 9.0 9.0-12.2 fL Immature Granulocyte % (Auto) 1 % Neutrophils (%) (Auto) 74 42-75 % Lymphocytes (%) (Auto) 14 12-44 % Monocytes (%) (Auto) 9 0-12 % Eosinophils (%) (Auto) 1 0-10 % Basophils (%) (Auto) 0 0-10 % Neutrophils # (Auto) 8.9 H 1.8-7.8 10^3/uL Lymphocytes # (Auto) 1.6 1.0-4.0 10^3/uL Monocytes # (Auto) 1.1 H 0.0-1.0 10^3/uL Eosinophils # (Auto) 0.2 0.0-0.3 10^3/uL Basophils # (Auto) 0.1 0.0-0.1 10^3/uL Immature Granulocyte # (Auto) 0.2 H 0.0-0.1 10^3/uL Sodium Level 141 135-145 MMOL/L Potassium Level 3.8 3.6-5.0 MMOL/L Chloride Level 103 98-107 MMOL/L Carbon Dioxide Level 25 21-32 MMOL/L Anion Gap 13 5-14 MMOL/L Blood Urea Nitrogen 13 7-18 MG/DL Creatinine 0.67 0.60-1.30 MG/DL Estimat Glomerular Filtration Rate 83 BUN/Creatinine Ratio 19 Glucose Level 103 70-105 MG/DL Calcium Level 9.2 8.5-10.1 MG/DL Corrected Calcium 9.8 8.5-10.1 MG/DL Magnesium Level 1.7 1.6-2.4 MG/DL Total Bilirubin 0.5 0.1-1.0 MG/DL Aspartate Amino Transf (AST/SGOT) 12 5-34 U/L Alanine Aminotransferase (ALT/SGPT) 6 0-55 U/L Alkaline Phosphatase 122 40-136 U/L Total Protein 7.5 6.4-8.2 GM/DL Albumin 3.2 3.2-4.5 GM/DL My Orders Orders - EDGAR AGRAWAL Cbc With Automated Diff (07/03/21 18:05) Comprehensive Metabolic Panel (07/03/21 18:05) Magnesium (07/03/21 18:05) Ua Culture If Indicated (07/03/21 18:05) Ed Iv/Invasive Line Start (07/03/21 18:05) Ns Iv 1000 Ml (Sodium Chloride 0.9%) (07/03/21 18:15) Ketorolac Injection (Toradol Injection) (07/03/21 19:00) Medications Given in ED Current Medications Medications Dose Ordered Sig/Ney Route Start Time Stop Time Status Last Admin Dose Admin Ketorolac Tromethamine 15 mg ONCE ONCE IVP 07/03/21 19:00 07/03/21 19:01 DC 07/03/21 18:54 15 MG Vital Signs/I&O 07/03/21 17:58 Temp 35.6 Pulse 75 Resp 18 B/P (MAP) 135/71 (92) Pulse Ox 98 Capillary Refill : Less Than 3 Seconds Blood Pressure Mean: 92 Progress Note #1: Time: 18:35 Progress Note Patient constantly repeats that she is hurting all over and please do not hurt me. We offered her some Tylenol which she agreed to. We will give her fluid bolus and check some labs as well as urinalysis. She seems to be having accelerated decline after her viral pneumonia earlier this month. She has mild clinical dehydration based on her dry oral mucosa. Aseptic vital signs. Progress Note #2: Time: 20:26 Progress Note After 15 mg of Toradol patient's very comfortable. Her family is happy with her parents. We did discuss because of her continual decline it would be reasonable to consult with hospice to help manage her pain and they thought that was a good idea and we discussed this with her PCP, Dr. Gillis. We will let her finish her fluids and return home. The daughters think they can transport the patient. Departure Impression Primary Impression: Dehydration Additional Impression: Generalized body aches Disposition: 01 HOME, SELF-CARE Condition: Stable Departure-Patient Inst. Decision time for Depature: 20:28 Referrals: NO,LOCAL PHYSICIAN (PCP/Family) Primary Care Physician Patient Instructions: Making Everyday Tasks Easier With Pain Add. Discharge Instructions: Speak to your primary care doctor about setting up a consult for hospice in the morning. Alternatively you may contact the hospice company directly yourself of your choice. Tylenol and Motrin as necessary for pains and aches. Hydrocodone would be her third choice as prescribed. All discharge instructions reviewed with patient and/or family. Voiced understanding. EDGAR AGRAWAL Jul 03, 2021 18:36
[2021-07-03 18:43] LABS: ALBUMIN 3.2 GM/DL (3.2-4.5)
[2021-07-03 18:44] LABS: POTASSIUM 3.8 MMOL/L (3.6-5.0)
[2021-07-03 18:45] LABS: CALCIUM 9.2 MG/DL (8.5-10.1)
[2021-07-03] MEDS ORDERED: ACETAMINOPHEN 500 MG TAB (TYLENOL) PO ONE (18:45)
[2021-07-03 18:46] LABS: TOTAL PROTEIN 7.5 GM/DL (6.4-8.2)
[2021-07-03 18:48] LABS: BILIRUBIN,TOTAL 0.5 MG/DL (0.1-1.0)
[2021-07-03 18:50] LABS: CREATININE SERUM 0.67 MG/DL (0.60-1.30)
[2021-07-03 18:52] LABS: MAGNESIUM 1.7 MG/DL (1.6-2.4)
[2021-07-03] MEDS ORDERED: KETOROLAC 30 MG/ML VIAL IVP ONE (19:00)
[2021-07-03 20:39] VITALS: BP 120/76
== END 2021-07-03 20:46 | disposition home or self-care (01) ==
LOC: EDUNIT# 17:58 → ER 18:01
DX: E86.0 Dehydration (principal); M79.10 Myalgia, unspecified site; I10 Essential (primary) hypertension; F03.90 Unspecified dementia, unspecified severity, without behavioral disturbance, psychotic disturbance, mood disturbance, and anxiety; Z86.73 Personal history of transient ischemic attack (TIA), and cerebral infarction without residual deficits; Z79.899 Other long term (current) drug therapy
CPT/HCPCS: 36415; 80053; 83735; 85025